=== PATIENT | female | born 1935 | race Caucasian/White ===

== ENCOUNTER 2020-08-09 08:53 | Inpatient (IN) | payer OTHER ==
[~2020-08-09] VITALS: Ht 167.6 cm; Wt 87.0 kg
[2020-08-09] MEDS ORDERED: ALBUTEROL SULFATE HFA 90 MCG/PUFF 8 GM INHALER IH ONE (09:30)
[2020-08-09 10:20] LABS: ABG A-A DIFF O2 599.9 mmHg (10-20.0); ABG BASE EXCESS -0.3 mmol/L (-2.0-3.0); ABG CARBOXYHEMOGLOBIN 0.6 % (0.0-1.5); ABG HCO3 24.7 mmol/L (22.0-26.0); ABG METHEMOGLOBIN 0.3 % (0.0-1.5); ABG OXYGEN CONTENT 18.4 mL/dL (15.0-23.0); ABG OXYGEN SATURATION 96.4 % (95.0-98.0); ABG OXYHEMOGLOBIN 95.5 % (94.0-100.0); ABG PCO2 34 mmHg (35-45); ABG PH 7.456 (7.35-7.450); ABG TOTAL HEMOGLOBIN 13.7 G/dL (12.0-18.0); O2 DEVICE,BLOOD GAS NON REBREATHER (ROOM AIR); PO2, ARTERIAL BG 78.8 mmHg (71.0-79.0); SITE, BLOOD GAS RT RADIAL; SOURCE, BLOOD GAS ARTERIAL; TEMPERATURE, FAHRENHEIT, BG 98.6 FAHREN (96.0-98.6)
[2020-08-09] MEDS ORDERED: CefTRIAXone 1 GM/DEXTROSE 50 ML IV ONE (10:30)
[2020-08-09] MEDS ORDERED: AZITHROMYCIN 500 MG/NS 250 ML IV ONE (10:30)
[2020-08-09] MEDS ORDERED: DEXAMETHASONE SOD PHOS 4 MG/ML VIAL IVP ONE (10:30)
[2020-08-09 10:54] LABS: BASOPHILS % (AUTO) 0.1 % (0.0-2.0); EOSINOPHILS % (AUTO) 0 % (1.0-6.0); HEMATOCRIT 38.5 % (36-46); HEMOGLOBIN 12.9 g/dL (12.0-16.0); LYMPHOCYTES # (AUTO) 0.4 K/uL (1.0-4.8); LYMPHOCYTES % (AUTO) 1.9 % (22.0-44.0); MEAN CORPUSCULAR HEMOGLOBIN 27.2 pg (26.0-34.0); MEAN CORPUSCULAR HGB CONC 33.5 G/dL (31.0-37.0); MEAN CORPUSCULAR VOLUME 81 fL (80-100); MONOCYTES # (AUTO) 0.9 K/uL (0.1-1.0); MONOCYTES % (AUTO) 4.5 % (2.0-9.0); NEUTROPHILS # (AUTO) 19.5 K/uL (1.8-7.7); PLATELET COUNT (AUTO) 333 K/uL (150-450); RED BLOOD CELL COUNT(AUTO) 4.75 MIL/uL (4.00-5.20); RED CELL DISTRIBUTION WIDTH 14.7 % (11.5-14.5)
[2020-08-09 10:55] LABS: NEUTROPHILS % (AUTO) 93.5 % (40.0-70.0)
[2020-08-09 11:04] LABS: ALANINE AMINOTRANSFERASE 57 U/L (12-78); ALBUMIN 2.7 g/dL (3.4-5.0); ALKALINE PHOSPHATASE 126 U/L (46-116); ANION GAP 15 mmol/L (8-16); ASPARTATE AMINOTRANSFERASE 30 U/L (15-37); BILIRUBIN,TOTAL 0.4 mg/dL (0.1-1.0); C-REACTIVE PROTEIN QUANT 8.42 mg/dL (0.00-0.30); CALCIUM, TOTAL 9.3 mg/dL (8.8-10.5); CARBON DIOXIDE 24 mmol/L (22-29); CHLORIDE 102 mmol/L (98-107); CREATINE KINASE, TOTAL ONLY 31 U/L (26-192); CREATININE 1.08 mg/dL (0.60-1.30); FERRITIN 510 ng/mL (8-252); GLOMERULAR FILTR. RATE CALC 49 mL/min (>60); GLUCOSE,RANDOM 168 mg/dL (70-110); LACTATE DEHYDROGENASE 365 U/L (81-234); POTASSIUM 3.1 mmol/L (3.5-5.1); SODIUM SERUM 141 mmol/L (136-145); TOTAL PROTEIN, SERUM 7.7 g/dL (6.4-8.2); UREA NITROGEN, BLOOD 32 mg/dL (7-18)
[2020-08-09 11:05] LABS: D-DIMER 0.84 mg/L FEU (0.00-0.50); PROTHROMBIN TIME 10.3 SEC (9.4-11.6)
[2020-08-09 11:09] LABS: LACTIC ACID 3.7 mmol/L (0.4-2.0)
[2020-08-09 11:24] LABS: B-TYPE NATRIURETIC PEPTIDE 74 pg/mL (0-100)
[2020-08-09] MEDS ORDERED: SODIUM CHLORIDE 0.9% 2,000 ML IV ONE (11:30)
[2020-08-09 11:35] LABS: INFLUENZA TYPE A NEGATIVE FOR TYPE A (NEGATIVE); INFLUENZA TYPE B NEGATIVE FOR TYPE B (NEGATIVE)
[2020-08-09] MEDS ORDERED: POTASSIUM CHLORIDE 20 MEQ ER TABLET PO ONE (11:45)
[2020-08-09] MEDS ORDERED: HEPARIN SODIUM,PORCINE 5,000 UNITS/ML VIAL IVP PRN ×2 (12:45)
[2020-08-09] MEDS ORDERED: HEPARIN SODIUM 25000 UNITS/D5W 250 ML IV PRN (12:45)
[2020-08-09] MEDS ORDERED: ZOLPIDEM TARTRATE 5 MG TABLET PO PRN (12:45)
[2020-08-09] MEDS ORDERED: 0.9% SODIUM CHLORIDE 10 ML SYRINGE IVP PRN (12:45)
[2020-08-09] MEDS ORDERED: HYDROCODONE/ACETAMINOPHEN 5-325 MG TABLET PO PRN (12:45)
[2020-08-09] MEDS ORDERED: BISACODYL 10 MG RECTAL RECTAL SUPPOSITORY PR PRN (12:45)
[2020-08-09] MEDS ORDERED: *CLINICAL-LEVOFLOXACIN IVPB DOSING CLINICAL ONE (12:45)
[2020-08-09] MEDS ORDERED: ACETAMINOPHEN 325 MG TABLET PO PRN (12:45)
[2020-08-09] MEDS ORDERED: REMDESIVIR 200 MG in SODIUM CHLORIDE 0.9% 250 ML IV ONE (13:00)
[2020-08-09 14:08] LABS: EOSINOPHILS % (AUTO) 0 % (1.0-6.0); HEMATOCRIT 38.5 % (36-46); HEMOGLOBIN 12.3 g/dL (12.0-16.0); LYMPHOCYTES # (AUTO) 0.5 K/uL (1.0-4.8); LYMPHOCYTES % (AUTO) 2.6 % (22.0-44.0); MEAN CORPUSCULAR HEMOGLOBIN 26.6 pg (26.0-34.0); MEAN CORPUSCULAR VOLUME 83 fL (80-100); MONOCYTES # (AUTO) 0.8 K/uL (0.1-1.0); MONOCYTES % (AUTO) 3.9 % (2.0-9.0); NEUTROPHILS # (AUTO) 19.3 K/uL (1.8-7.7); PLATELET COUNT (AUTO) 309 K/uL (150-450); RED BLOOD CELL COUNT(AUTO) 4.65 MIL/uL (4.00-5.20)
[2020-08-09 14:16] LABS: PROTHROMBIN TIME 10.4 SEC (9.4-11.6)
[2020-08-09 14:18] LABS: NEUTROPHILS % (AUTO) 93.5 % (40.0-70.0)
[2020-08-09] MEDS ORDERED: SODIUM CHLORIDE 0.9% 500 ML IV ONE (15:16)
[2020-08-09 15:53] VITALS: BP 163/83
[2020-08-09] MEDS ORDERED: HEPARIN SODIUM,PORCINE 5,000 UNITS/ML VIAL SQ SCH (16:00)
[2020-08-09] MEDS: GuaiFENesin/CODEINE [SUGAR FREE] 200-20MG/10 ML SYRUP UDCUP PO PRN (17:27)
[2020-08-09] MEDS ORDERED: LOSA-382 PO (20:15)
[2020-08-09] MEDS ORDERED: AMLO-257 PO (20:15)
[2020-08-09 20:19] VITALS: BP 144/64
[2020-08-09] MEDS: CHOLECALCIFEROL (VIT D3) 400 UNITS [10 MCG] TABLET PO SCH (21:46)
[2020-08-09] MEDS: ASCORBIC ACID 500 MG TABLET PO SCH (21:46)
[2020-08-09] MEDS: ZINC SULFATE 220 MG CAPSULE PO SCH (21:47)
[2020-08-09] MEDS: DOCUSATE SODIUM 100 MG CAPSULE PO SCH (21:47)
[2020-08-09] MEDS: BENZONATATE 100 MG CAPSULE PO SCH (21:47)
[2020-08-09] MEDS: ONDANSETRON HCL 4 MG/2 ML VIAL IVP PRN (22:52)
[2020-08-10] VITALS (7 sets, daily range): BP systolic 124–150; BP diastolic 55–93
[2020-08-10] MEDS: FAMOTIDINE 10 MG/ML 2 ML VIAL IVP SCH ×2 (01:45→08:16)
[2020-08-10] MEDS ORDERED: SENNA 187 MG TABLET PO PRN (01:45)
[2020-08-10] MEDS ORDERED: METOCLOPRAMIDE HCL 5 MG/ML 2 ML VIAL IVP ONE (01:45)
[2020-08-10] MEDS: GuaiFENesin/CODEINE [SUGAR FREE] 200-20MG/10 ML SYRUP UDCUP PO PRN (06:42)
[2020-08-10 07:18] LABS: BASOPHILS % (AUTO) 0.1 % (0.0-2.0); EOSINOPHILS % (AUTO) 0 % (1.0-6.0); HEMATOCRIT 37.3 % (36-46); HEMOGLOBIN 12.3 g/dL (12.0-16.0); LYMPHOCYTES # (AUTO) 0.9 K/uL (1.0-4.8); LYMPHOCYTES % (AUTO) 4.5 % (22.0-44.0); MEAN CORPUSCULAR HEMOGLOBIN 26.7 pg (26.0-34.0); MEAN CORPUSCULAR HGB CONC 32.9 G/dL (31.0-37.0); MEAN CORPUSCULAR VOLUME 81 fL (80-100); MONOCYTES # (AUTO) 1.4 K/uL (0.1-1.0); NEUTROPHILS # (AUTO) 17.4 K/uL (1.8-7.7); PLATELET COUNT (AUTO) 323 K/uL (150-450); RED BLOOD CELL COUNT(AUTO) 4.59 MIL/uL (4.00-5.20); RED CELL DISTRIBUTION WIDTH 14.9 % (11.5-14.5)
[2020-08-10 07:36] LABS: NEUTROPHILS % (AUTO) 88.4 % (40.0-70.0)
[2020-08-10 07:40] LABS: ALANINE AMINOTRANSFERASE 56 U/L (12-78); ALBUMIN 2.2 g/dL (3.4-5.0); ALKALINE PHOSPHATASE 120 U/L (46-116); ANION GAP 11 mmol/L (8-16); ASPARTATE AMINOTRANSFERASE 40 U/L (15-37); BILIRUBIN,TOTAL 0.4 mg/dL (0.1-1.0); CARBON DIOXIDE 25 mmol/L (22-29); CHLORIDE 108 mmol/L (98-107); CREATININE 0.74 mg/dL (0.60-1.30); GLOMERULAR FILTR. RATE CALC > 60 mL/min (>60); GLUCOSE,RANDOM 124 mg/dL (70-110); POTASSIUM 3.5 mmol/L (3.5-5.1); SODIUM SERUM 144 mmol/L (136-145); TOTAL PROTEIN, SERUM 6.9 g/dL (6.4-8.2); UREA NITROGEN, BLOOD 26 mg/dL (7-18)
[2020-08-10] MEDS: ASCORBIC ACID 500 MG TABLET PO SCH ×2 (08:15→20:01)
[2020-08-10] MEDS: CHOLECALCIFEROL (VIT D3) 400 UNITS [10 MCG] TABLET PO SCH ×2 (08:15→20:00)
[2020-08-10] MEDS: ZINC SULFATE 220 MG CAPSULE PO SCH ×2 (08:16→20:01)
[2020-08-10] MEDS: BENZONATATE 100 MG CAPSULE PO SCH ×3 (08:16→20:01)
[2020-08-10] MEDS: DOCUSATE SODIUM 100 MG CAPSULE PO SCH ×2 (08:16→20:01)
[2020-08-10] MEDS: DEXAMETHASONE SOD PHOS 4 MG/ML VIAL IVP SCH (08:17)
[2020-08-10] MEDS ORDERED: LEVOFLOXACIN 750 MG/D5% WATER 150 ML IV SCH (09:00)
[2020-08-10] MEDS ORDERED: PANTOPRAZOLE SODIUM 40 MG DR TABLET PO SCH (09:00)
[2020-08-10] MEDS: LACTOBAC ACID/BULG/BIFID/THERM TABLET PO SCH ×2 (10:00→20:00)
[2020-08-10] MEDS ORDERED: SODIUM CHLORIDE 0.9% 0 ML ONE (11:20)
[2020-08-10] MEDS ORDERED: IOVERSOL 350 MG/ML 100 ML VIAL ONE (11:20)
[2020-08-10] MEDS ORDERED: BARIUM SULFATE 0.1% SUSPENSION 450 ML BOTTLE ONE (11:26)
[2020-08-10] MEDS: MORPHINE SULFATE 2 MG/ML SYRINGE IVP PRN ×2 (12:10→21:27)
[2020-08-10] MEDS: REMDESIVIR 100 MG in SODIUM CHLORIDE 0.9% 250 ML IV SCH (17:55)
[2020-08-10] MEDS: FAMOTIDINE 20 MG TABLET PO SCH (20:00)
[2020-08-10] MEDS: APIXABAN 5 MG TABLET PO SCH (20:00)
[2020-08-10] MEDS: AmLODIPine BESYLATE 5 MG TABLET PO SCH (20:01)
[2020-08-10] MEDS: ONDANSETRON HCL 4 MG/2 ML VIAL IVP PRN (21:27)
[2020-08-10] MEDS ORDERED: SODIUM CHLORIDE 0.9% 500 ML IV ONE (21:31)
[2020-08-11] VITALS (12 sets, daily range): BP systolic 112–137; BP diastolic 48–72
[2020-08-11] MEDS: GuaiFENesin/CODEINE [SUGAR FREE] 200-20MG/10 ML SYRUP UDCUP PO PRN (03:25)
[2020-08-11 06:43] LABS: EOSINOPHILS % (AUTO) 0 % (1.0-6.0); HEMATOCRIT 36.8 % (36-46); HEMOGLOBIN 11.9 g/dL (12.0-16.0); LYMPHOCYTES # (AUTO) 0.9 K/uL (1.0-4.8); LYMPHOCYTES % (AUTO) 5.1 % (22.0-44.0); MEAN CORPUSCULAR HEMOGLOBIN 26.4 pg (26.0-34.0); MEAN CORPUSCULAR HGB CONC 32.3 G/dL (31.0-37.0); MEAN CORPUSCULAR VOLUME 82 fL (80-100); MONOCYTES # (AUTO) 1.9 K/uL (0.1-1.0); MONOCYTES % (AUTO) 9.9 % (2.0-9.0); NEUTROPHILS # (AUTO) 15.8 K/uL (1.8-7.7); PLATELET COUNT (AUTO) 301 K/uL (150-450); RED BLOOD CELL COUNT(AUTO) 4.49 MIL/uL (4.00-5.20); RED CELL DISTRIBUTION WIDTH 14.5 % (11.5-14.5)
[2020-08-11 07:22] LABS: ALANINE AMINOTRANSFERASE 46 U/L (12-78); ALBUMIN 2.1 g/dL (3.4-5.0); ALKALINE PHOSPHATASE 108 U/L (46-116); ANION GAP 8 mmol/L (8-16); ASPARTATE AMINOTRANSFERASE 31 U/L (15-37); BILIRUBIN,TOTAL 0.4 mg/dL (0.1-1.0); C-REACTIVE PROTEIN QUANT 6.51 mg/dL (0.00-0.30); CALCIUM, TOTAL 8.2 mg/dL (8.8-10.5); CARBON DIOXIDE 27 mmol/L (22-29); CHLORIDE 105 mmol/L (98-107); CREATININE 0.68 mg/dL (0.60-1.30); GLUCOSE,RANDOM 104 mg/dL (70-110); POTASSIUM 3.4 mmol/L (3.5-5.1); SODIUM SERUM 140 mmol/L (136-145); TOTAL PROTEIN, SERUM 6.4 g/dL (6.4-8.2); UREA NITROGEN, BLOOD 26 mg/dL (7-18)
[2020-08-11 07:24] LABS: GLOMERULAR FILTR. RATE CALC > 60 mL/min (>60)
[2020-08-11] MEDS: DEXAMETHASONE SOD PHOS 4 MG/ML VIAL IVP SCH (08:22)
[2020-08-11] MEDS: APIXABAN 5 MG TABLET PO SCH ×2 (08:23→20:47)
[2020-08-11] MEDS: ZINC SULFATE 220 MG CAPSULE PO SCH ×2 (08:23→20:47)
[2020-08-11] MEDS: BENZONATATE 100 MG CAPSULE PO SCH ×3 (08:23→20:47)
[2020-08-11] MEDS: LACTOBAC ACID/BULG/BIFID/THERM TABLET PO SCH ×2 (08:23→20:47)
[2020-08-11] MEDS: DOCUSATE SODIUM 100 MG CAPSULE PO SCH ×2 (08:23→20:48)
[2020-08-11] MEDS: LEVOFLOXACIN 750 MG/D5% WATER 150 ML IV SCH (08:23)
[2020-08-11] MEDS: CHOLECALCIFEROL (VIT D3) 400 UNITS [10 MCG] TABLET PO SCH ×2 (08:23→20:48)
[2020-08-11] MEDS: ASCORBIC ACID 500 MG TABLET PO SCH ×2 (08:23→20:47)
[2020-08-11] MEDS: FAMOTIDINE 20 MG TABLET PO SCH ×2 (08:24→20:47)
[2020-08-11] MEDS: ONDANSETRON HCL 4 MG/2 ML VIAL IVP PRN ×2 (08:40→22:35)
[2020-08-11] MEDS: MORPHINE SULFATE 2 MG/ML SYRINGE IVP PRN ×2 (08:40→22:09)
[2020-08-11] MEDS: POTASSIUM CHLORIDE 20 MEQ ER TABLET PO PRN (12:55)
[2020-08-11] MEDS: LORazepam 0.5 MG TABLET PO PRN (12:55)
[2020-08-11] MEDS: REMDESIVIR 100 MG in SODIUM CHLORIDE 0.9% 250 ML IV SCH (16:20)
[2020-08-11] MEDS: AmLODIPine BESYLATE 5 MG TABLET PO SCH (20:47)
[2020-08-12 00:34] VITALS: BP 133/67
[2020-08-12 04:05] VITALS: BP 156/66
[2020-08-12] MEDS: MORPHINE SULFATE 2 MG/ML SYRINGE IVP PRN ×3 (06:07→22:05)
[2020-08-12 07:57] VITALS: BP 139/65
[2020-08-12] MEDS: DEXAMETHASONE SOD PHOS 4 MG/ML VIAL IVP SCH (08:11)
[2020-08-12] MEDS: LEVOFLOXACIN 750 MG/D5% WATER 150 ML IV SCH (08:11)
[2020-08-12] MEDS: CHOLECALCIFEROL (VIT D3) 400 UNITS [10 MCG] TABLET PO SCH ×2 (08:12→20:48)
[2020-08-12] MEDS: BENZONATATE 100 MG CAPSULE PO SCH ×3 (08:12→20:48)
[2020-08-12] MEDS: ASCORBIC ACID 500 MG TABLET PO SCH ×2 (08:12→20:49)
[2020-08-12] MEDS: ZINC SULFATE 220 MG CAPSULE PO SCH ×2 (08:12→20:48)
[2020-08-12] MEDS: FAMOTIDINE 20 MG TABLET PO SCH ×2 (08:12→20:48)
[2020-08-12] MEDS: DOCUSATE SODIUM 100 MG CAPSULE PO SCH ×2 (08:12→20:49)
[2020-08-12] MEDS: APIXABAN 5 MG TABLET PO SCH ×2 (08:12→20:49)
[2020-08-12] MEDS: LACTOBAC ACID/BULG/BIFID/THERM TABLET PO SCH ×2 (08:16→20:48)
[2020-08-12 08:57] LABS: ALANINE AMINOTRANSFERASE 41 U/L (12-78); ALBUMIN 2.2 g/dL (3.4-5.0); ALKALINE PHOSPHATASE 111 U/L (46-116); ANION GAP 9 mmol/L (8-16); ASPARTATE AMINOTRANSFERASE 30 U/L (15-37); BILIRUBIN,TOTAL 0.4 mg/dL (0.1-1.0); C-REACTIVE PROTEIN QUANT 5.16 mg/dL (0.00-0.30); CALCIUM, TOTAL 8.2 mg/dL (8.8-10.5); CARBON DIOXIDE 26 mmol/L (22-29); CHLORIDE 106 mmol/L (98-107); CREATININE 0.66 mg/dL (0.60-1.30); FERRITIN 800 ng/mL (8-252); GLUCOSE,RANDOM 83 mg/dL (70-110); POTASSIUM 3.8 mmol/L (3.5-5.1); SODIUM SERUM 141 mmol/L (136-145); TOTAL PROTEIN, SERUM 6.6 g/dL (6.4-8.2); UREA NITROGEN, BLOOD 26 mg/dL (7-18)
[2020-08-12 08:59] LABS: GLOMERULAR FILTR. RATE CALC > 60 mL/min (>60)
[2020-08-12] MEDS: ONDANSETRON HCL 4 MG/2 ML VIAL IVP PRN (10:59)
[2020-08-12 11:12] VITALS: BP 123/63
[2020-08-12] MEDS: MAGNESIUM HYDROXIDE SUSPENSION 30 ML UDCUP PO PRN (13:17)
[2020-08-12] MEDS: LORazepam 0.5 MG TABLET PO PRN (14:25)
[2020-08-12 15:38] VITALS: BP 129/65
[2020-08-12] MEDS: REMDESIVIR 100 MG in SODIUM CHLORIDE 0.9% 250 ML IV SCH (16:59)
[2020-08-12 20:08] VITALS: BP 111/67
[2020-08-12] MEDS: AmLODIPine BESYLATE 5 MG TABLET PO SCH (20:49)
[2020-08-13] VITALS (9 sets, daily range): BP systolic 106–139; BP diastolic 46–64
[2020-08-13] MEDS: ONDANSETRON HCL 4 MG/2 ML VIAL IVP PRN ×2 (00:15→21:48)
[2020-08-13] MEDS: MORPHINE SULFATE 2 MG/ML SYRINGE IVP PRN ×3 (02:00→20:08)
[2020-08-13] MEDS: ACETAMINOPHEN 325 MG TABLET PO PRN (05:27)
[2020-08-13] MEDS: DEXAMETHASONE SOD PHOS 4 MG/ML VIAL IVP SCH (08:00)
[2020-08-13] MEDS: ASCORBIC ACID 500 MG TABLET PO SCH ×2 (08:00→19:57)
[2020-08-13] MEDS: ZINC SULFATE 220 MG CAPSULE PO SCH ×2 (08:00→19:57)
[2020-08-13] MEDS: LACTOBAC ACID/BULG/BIFID/THERM TABLET PO SCH ×2 (08:00→19:57)
[2020-08-13] MEDS: DOCUSATE SODIUM 100 MG CAPSULE PO SCH ×2 (08:01→19:57)
[2020-08-13] MEDS: APIXABAN 5 MG TABLET PO SCH ×2 (08:01→19:57)
[2020-08-13] MEDS: FAMOTIDINE 20 MG TABLET PO SCH (08:01)
[2020-08-13] MEDS: LORazepam 0.5 MG TABLET PO PRN (08:01)
[2020-08-13] MEDS: CHOLECALCIFEROL (VIT D3) 400 UNITS [10 MCG] TABLET PO SCH ×2 (08:01→19:57)
[2020-08-13] MEDS: BENZONATATE 100 MG CAPSULE PO SCH ×3 (08:01→19:57)
[2020-08-13] MEDS: LEVOFLOXACIN 750 MG/D5% WATER 150 ML IV SCH (08:02)
[2020-08-13 08:15] LABS: BASOPHILS % (AUTO) 0.1 % (0.0-2.0); EOSINOPHILS % (AUTO) 0.1 % (1.0-6.0); HEMATOCRIT 35.8 % (36-46); HEMOGLOBIN 11.6 g/dL (12.0-16.0); LYMPHOCYTES # (AUTO) 1.1 K/uL (1.0-4.8); LYMPHOCYTES % (AUTO) 5.6 % (22.0-44.0); MEAN CORPUSCULAR HEMOGLOBIN 26.6 pg (26.0-34.0); MEAN CORPUSCULAR HGB CONC 32.4 G/dL (31.0-37.0); MEAN CORPUSCULAR VOLUME 82 fL (80-100); MONOCYTES # (AUTO) 1.5 K/uL (0.1-1.0); MONOCYTES % (AUTO) 7.8 % (2.0-9.0); NEUTROPHILS # (AUTO) 16.1 K/uL (1.8-7.7); PLATELET COUNT (AUTO) 300 K/uL (150-450); RED BLOOD CELL COUNT(AUTO) 4.37 MIL/uL (4.00-5.20); RED CELL DISTRIBUTION WIDTH 14.5 % (11.5-14.5)
[2020-08-13 08:19] LABS: NEUTROPHILS % (AUTO) 86.4 % (40.0-70.0)
[2020-08-13 08:45] LABS: ALANINE AMINOTRANSFERASE 34 U/L (12-78); ALBUMIN 1.9 g/dL (3.4-5.0); ALKALINE PHOSPHATASE 97 U/L (46-116); ANION GAP 9 mmol/L (8-16); ASPARTATE AMINOTRANSFERASE 22 U/L (15-37); BILIRUBIN,TOTAL 0.5 mg/dL (0.1-1.0); C-REACTIVE PROTEIN QUANT 8.52 mg/dL (0.00-0.30); CALCIUM, TOTAL 7.7 mg/dL (8.8-10.5); CARBON DIOXIDE 27 mmol/L (22-29); CHLORIDE 105 mmol/L (98-107); CREATININE 0.68 mg/dL (0.60-1.30); GLOMERULAR FILTR. RATE CALC > 60 mL/min (>60); GLUCOSE,RANDOM 80 mg/dL (70-110); POTASSIUM 3.5 mmol/L (3.5-5.1); SODIUM SERUM 141 mmol/L (136-145); TOTAL PROTEIN, SERUM 5.8 g/dL (6.4-8.2); UREA NITROGEN, BLOOD 27 mg/dL (7-18)
[2020-08-13] MEDS: PANTOPRAZOLE SODIUM 40 MG DR TABLET PO SCH ×2 (10:27→19:57)
[2020-08-13] MEDS: REMDESIVIR 100 MG in SODIUM CHLORIDE 0.9% 250 ML IV SCH (16:24)
[2020-08-13] MEDS ORDERED: SODIUM CHLORIDE 0.9% 100 ML ONE (19:48)
[2020-08-13] MEDS: AmLODIPine BESYLATE 5 MG TABLET PO SCH (19:57)
[2020-08-14 00:23] VITALS: BP 122/43
[2020-08-14] MEDS: LORazepam 0.5 MG TABLET PO PRN ×2 (01:14→23:15)
[2020-08-14] MEDS: SENNA 187 MG TABLET PO PRN (01:15)
[2020-08-14 03:28] LABS: ABG A-A DIFF O2 582.8 mmHg (10-20.0); ABG CARBOXYHEMOGLOBIN 1.1 % (0.0-1.5); ABG HCO3 26.6 mmol/L (22.0-26.0); ABG METHEMOGLOBIN 0.3 % (0.0-1.5); ABG OXYGEN CONTENT 16.4 mL/dL (15.0-23.0); ABG OXYGEN SATURATION 87.7 % (95.0-98.0); ABG OXYHEMOGLOBIN 86.5 % (94.0-100.0); ABG PCO2 43 mmHg (35-45); ABG PH 7.423 (7.35-7.450); ABG TOTAL HEMOGLOBIN 13.5 G/dL (12.0-18.0); O2 DEVICE,BLOOD GAS CANNULA (ROOM AIR); SITE, BLOOD GAS RT RADIAL; SOURCE, BLOOD GAS ARTERIAL; TEMPERATURE, FAHRENHEIT, BG 98.6 FAHREN (96.0-98.6)
[2020-08-14] MEDS: MORPHINE SULFATE 2 MG/ML SYRINGE IVP PRN ×4 (03:32→20:15)
[2020-08-14 06:27] VITALS: BP 117/50
[2020-08-14 08:18] VITALS: BP 125/57
[2020-08-14 08:29] LABS: ALANINE AMINOTRANSFERASE 28 U/L (12-78); ALKALINE PHOSPHATASE 90 U/L (46-116); ANION GAP 9 mmol/L (8-16); ASPARTATE AMINOTRANSFERASE 17 U/L (15-37); BILIRUBIN,TOTAL 0.6 mg/dL (0.1-1.0); C-REACTIVE PROTEIN QUANT 9.39 mg/dL (0.00-0.30); CALCIUM, TOTAL 7.8 mg/dL (8.8-10.5); CARBON DIOXIDE 27 mmol/L (22-29); CHLORIDE 105 mmol/L (98-107); CREATININE 0.72 mg/dL (0.60-1.30); GLUCOSE,RANDOM 84 mg/dL (70-110); POTASSIUM 3.6 mmol/L (3.5-5.1); SODIUM SERUM 141 mmol/L (136-145); TOTAL PROTEIN, SERUM 5.9 g/dL (6.4-8.2); UREA NITROGEN, BLOOD 22 mg/dL (7-18)
[2020-08-14 08:32] LABS: GLOMERULAR FILTR. RATE CALC > 60 mL/min (>60)
[2020-08-14] MEDS: CHOLECALCIFEROL (VIT D3) 400 UNITS [10 MCG] TABLET PO SCH ×2 (08:44→20:41)
[2020-08-14] MEDS: ASCORBIC ACID 500 MG TABLET PO SCH ×2 (08:44→20:40)
[2020-08-14] MEDS: ZINC SULFATE 220 MG CAPSULE PO SCH ×2 (08:44→20:51)
[2020-08-14] MEDS: BENZONATATE 100 MG CAPSULE PO SCH ×3 (08:44→20:40)
[2020-08-14] MEDS: LACTOBAC ACID/BULG/BIFID/THERM TABLET PO SCH ×2 (08:44→20:40)
[2020-08-14] MEDS: PANTOPRAZOLE SODIUM 40 MG DR TABLET PO SCH ×2 (08:44→20:40)
[2020-08-14] MEDS: DOCUSATE SODIUM 100 MG CAPSULE PO SCH ×2 (08:44→20:40)
[2020-08-14] MEDS: APIXABAN 5 MG TABLET PO SCH ×2 (08:44→20:40)
[2020-08-14] MEDS: DEXAMETHASONE SOD PHOS 4 MG/ML VIAL IVP SCH (08:45)
[2020-08-14] MEDS: LEVOFLOXACIN 750 MG/D5% WATER 150 ML IV SCH (08:45)
[2020-08-14] MEDS ORDERED: SODIUM CHLORIDE 0.9% 1,000 ML IV ONE (10:45)
[2020-08-14] MEDS ORDERED: SODIUM CHLORIDE 0.9% 100 ML ONE (10:57)
[2020-08-14] MEDS ORDERED: BARIUM SULFATE 0.1% SUSPENSION 450 ML BOTTLE ONE (10:57)
[2020-08-14] MEDS ORDERED: IOVERSOL 320 MG/ML 100 ML VIAL ONE (10:57)
[2020-08-14 12:24] VITALS: BP 132/57
[2020-08-14 13:02] LABS: LACTIC ACID 2.3 mmol/L (0.4-2.0)
[2020-08-14 15:37] VITALS: BP 135/68
[2020-08-14] MEDS: MetroNIDAZOLE 500 MG/NACL 100 ML IV SCH ×2 (15:38→20:54)
[2020-08-14 20:35] VITALS: BP 111/48
[2020-08-14] MEDS: AmLODIPine BESYLATE 5 MG TABLET PO SCH (20:40)
[2020-08-15] VITALS (9 sets, daily range): BP systolic 112–143; BP diastolic 50–79
[2020-08-15] MEDS: MORPHINE SULFATE 2 MG/ML SYRINGE IVP PRN ×5 (00:36→18:44)
[2020-08-15] MEDS: MetroNIDAZOLE 500 MG/NACL 100 ML IV SCH ×3 (05:00→21:24)
[2020-08-15 06:22] LABS: EOSINOPHILS % (AUTO) 0.2 % (1.0-6.0); HEMATOCRIT 36.2 % (36-46); HEMOGLOBIN 11.9 g/dL (12.0-16.0); LYMPHOCYTES # (AUTO) 1.3 K/uL (1.0-4.8); LYMPHOCYTES % (AUTO) 5.8 % (22.0-44.0); MEAN CORPUSCULAR HEMOGLOBIN 26.9 pg (26.0-34.0); MEAN CORPUSCULAR VOLUME 82 fL (80-100); MONOCYTES # (AUTO) 0.8 K/uL (0.1-1.0); MONOCYTES % (AUTO) 3.9 % (2.0-9.0); NEUTROPHILS # (AUTO) 19.4 K/uL (1.8-7.7); PLATELET COUNT (AUTO) 365 K/uL (150-450); RED BLOOD CELL COUNT(AUTO) 4.43 MIL/uL (4.00-5.20); RED CELL DISTRIBUTION WIDTH 14.9 % (11.5-14.5)
[2020-08-15 06:57] LABS: NEUTROPHILS % (AUTO) 90.1 % (40.0-70.0)
[2020-08-15 07:52] LABS: ANION GAP 9 mmol/L (8-16); CARBON DIOXIDE 26 mmol/L (22-29); CHLORIDE 106 mmol/L (98-107); CREATININE 0.71 mg/dL (0.60-1.30); GLUCOSE,RANDOM 100 mg/dL (70-110); POTASSIUM 3.5 mmol/L (3.5-5.1); SODIUM SERUM 141 mmol/L (136-145); UREA NITROGEN, BLOOD 20 mg/dL (7-18)
[2020-08-15 07:53] LABS: ALANINE AMINOTRANSFERASE 24 U/L (12-78); ALKALINE PHOSPHATASE 95 U/L (46-116); ASPARTATE AMINOTRANSFERASE 20 U/L (15-37); BILIRUBIN,TOTAL 0.7 mg/dL (0.1-1.0); C-REACTIVE PROTEIN QUANT 12.19 mg/dL (0.00-0.30); CALCIUM, TOTAL 7.7 mg/dL (8.8-10.5); CREATINE KINASE, TOTAL ONLY 36 U/L (26-192); FERRITIN 584 ng/mL (8-252); LACTATE DEHYDROGENASE 461 U/L (81-234); TOTAL PROTEIN, SERUM 6.1 g/dL (6.4-8.2)
[2020-08-15 07:55] LABS: GLOMERULAR FILTR. RATE CALC > 60 mL/min (>60)
[2020-08-15] MEDS: LACTOBAC ACID/BULG/BIFID/THERM TABLET PO SCH ×2 (09:00→21:00)
[2020-08-15] MEDS: DEXAMETHASONE SOD PHOS 4 MG/ML VIAL IVP SCH (09:19)
[2020-08-15] MEDS: LEVOFLOXACIN 750 MG/D5% WATER 150 ML IV SCH (09:43)
[2020-08-15] MEDS: APIXABAN 5 MG TABLET PO SCH ×2 (11:49→21:00)
[2020-08-15] MEDS: POLYETHYLENE GLYCOL 3350 17 GM PACKET PO SCH (11:53)
[2020-08-15] MEDS: CHOLECALCIFEROL (VIT D3) 400 UNITS [10 MCG] TABLET PO SCH ×2 (11:54→21:00)
[2020-08-15] MEDS: ZINC SULFATE 220 MG CAPSULE PO SCH ×2 (11:54→21:00)
[2020-08-15] MEDS: PANTOPRAZOLE SODIUM 40 MG DR TABLET PO SCH ×2 (11:54→21:00)
[2020-08-15] MEDS: BENZONATATE 100 MG CAPSULE PO SCH ×3 (11:54→21:00)
[2020-08-15] MEDS: ASCORBIC ACID 500 MG TABLET PO SCH ×2 (11:54→21:00)
[2020-08-15] MEDS ORDERED: MORPHINE SULFATE 2 MG/ML SYRINGE IVP ONE (12:00)
[2020-08-15] MEDS: DEXTROSE 5%-0.45% SODIUM CHL 1,000 ML IV SCH (12:25)
[2020-08-15] MEDS ORDERED: PROPOFOL 1000 MG/ISO-OSM 100 ML IV ONE (18:35)
[2020-08-15] MEDS: AmLODIPine BESYLATE 5 MG TABLET PO SCH (21:00)
[2020-08-15 21:08] LABS: ABG A-A DIFF O2 594.6 mmHg (10-20.0); ABG BASE EXCESS 2.4 mmol/L (-2.0-3.0); ABG CARBOXYHEMOGLOBIN 0.5 % (0.0-1.5); ABG HCO3 26.5 mmol/L (22.0-26.0); ABG OXYGEN CONTENT 17.1 mL/dL (15.0-23.0); ABG OXYHEMOGLOBIN 95.5 % (94.0-100.0); ABG PCO2 40 mmHg (35-45); ABG PH 7.442 (7.35-7.450); ABG TOTAL HEMOGLOBIN 12.7 G/dL (12.0-18.0); PO2, ARTERIAL BG 78.7 mmHg (71.0-79.0); SOURCE, BLOOD GAS ARTERIAL; TEMPERATURE, FAHRENHEIT, BG 98.6 FAHREN (96.0-98.6)
[2020-08-15 21:09] LABS: O2 DEVICE,BLOOD GAS BIPAP (ROOM AIR); SITE, BLOOD GAS LFT RADIAL; VENT MODE, BG BIPAP (ROOM AIR)
[2020-08-15] MEDS ORDERED: ENOXAPARIN SODIUM 80 MG/0.8 ML PF SYRINGE SQ ONE (22:00)
[2020-08-16] VITALS: BP 132/79
[2020-08-16] MEDS: MetroNIDAZOLE 500 MG/NACL 100 ML IV SCH ×3 (04:43→21:11)
[2020-08-16 06:18] LABS: BASOPHILS % (AUTO) 0.2 % (0.0-2.0); EOSINOPHILS % (AUTO) 0.1 % (1.0-6.0); HEMATOCRIT 35.6 % (36-46); HEMOGLOBIN 11.7 g/dL (12.0-16.0); LYMPHOCYTES # (AUTO) 0.6 K/uL (1.0-4.8); LYMPHOCYTES % (AUTO) 2.7 % (22.0-44.0); MEAN CORPUSCULAR HEMOGLOBIN 26.6 pg (26.0-34.0); MEAN CORPUSCULAR HGB CONC 32.9 G/dL (31.0-37.0); MEAN CORPUSCULAR VOLUME 81 fL (80-100); MONOCYTES # (AUTO) 0.7 K/uL (0.1-1.0); MONOCYTES % (AUTO) 3.1 % (2.0-9.0); NEUTROPHILS # (AUTO) 21.8 K/uL (1.8-7.7); PLATELET COUNT (AUTO) 320 K/uL (150-450); RED BLOOD CELL COUNT(AUTO) 4.39 MIL/uL (4.00-5.20); RED CELL DISTRIBUTION WIDTH 14.7 % (11.5-14.5)
[2020-08-16 06:29] LABS: NEUTROPHILS % (AUTO) 93.9 % (40.0-70.0)
[2020-08-16 06:36] LABS: ALANINE AMINOTRANSFERASE 21 U/L (12-78); ALBUMIN 1.9 g/dL (3.4-5.0); ALKALINE PHOSPHATASE 85 U/L (46-116); ANION GAP 8 mmol/L (8-16); ASPARTATE AMINOTRANSFERASE 14 U/L (15-37); BILIRUBIN,TOTAL 0.5 mg/dL (0.1-1.0); C-REACTIVE PROTEIN QUANT 13.53 mg/dL (0.00-0.30); CARBON DIOXIDE 27 mmol/L (22-29); CHLORIDE 107 mmol/L (98-107); CREATININE 0.64 mg/dL (0.60-1.30); GLUCOSE,RANDOM 125 mg/dL (70-110); POTASSIUM 3.3 mmol/L (3.5-5.1); SODIUM SERUM 142 mmol/L (136-145); TOTAL PROTEIN, SERUM 6.1 g/dL (6.4-8.2); UREA NITROGEN, BLOOD 19 mg/dL (7-18)
[2020-08-16 06:49] LABS: GLOMERULAR FILTR. RATE CALC > 60 mL/min (>60)
[2020-08-16] MEDS: MORPHINE SULFATE 2 MG/ML SYRINGE IVP PRN ×3 (07:47→18:00)
[2020-08-16 08:00] VITALS: BP 126/49
[2020-08-16] MEDS: DEXAMETHASONE SOD PHOS 4 MG/ML VIAL IVP SCH (08:22)
[2020-08-16] MEDS: ZINC SULFATE 220 MG CAPSULE PO SCH ×2 (08:22→21:09)
[2020-08-16] MEDS: CHOLECALCIFEROL (VIT D3) 400 UNITS [10 MCG] TABLET PO SCH ×2 (08:22→21:17)
[2020-08-16] MEDS: DEXTROSE 5%-0.45% SODIUM CHL 1,000 ML IV SCH (08:22)
[2020-08-16] MEDS: SENNA 187 MG TABLET PO PRN (08:22)
[2020-08-16] MEDS: BENZONATATE 100 MG CAPSULE PO SCH ×4 (08:23→21:09)
[2020-08-16] MEDS: LACTOBAC ACID/BULG/BIFID/THERM TABLET PO SCH ×3 (08:23→21:09)
[2020-08-16] MEDS: ASCORBIC ACID 500 MG TABLET PO SCH ×2 (08:23→21:09)
[2020-08-16] MEDS: APIXABAN 5 MG TABLET PO SCH ×2 (08:23→21:09)
[2020-08-16] MEDS: PANTOPRAZOLE SODIUM 40 MG DR TABLET PO SCH ×2 (08:23→21:09)
[2020-08-16] MEDS: POLYETHYLENE GLYCOL 3350 17 GM PACKET PO SCH ×2 (08:25→09:00)
[2020-08-16] MEDS: POTASSIUM CHLORIDE 20 MEQ ER TABLET PO PRN (08:25)
[2020-08-16] MEDS ORDERED: SODIUM CHLORIDE 0.9% 250 ML IV ONE (08:26)
[2020-08-16] MEDS: LEVOFLOXACIN 750 MG/D5% WATER 150 ML IV SCH (08:27)
[2020-08-16 12:00] VITALS: BP 155/79
[2020-08-16 16:00] VITALS: BP 136/69
[2020-08-16 20:00] VITALS: BP 144/72
[2020-08-16] MEDS: AmLODIPine BESYLATE 5 MG TABLET PO SCH (21:09)
[2020-08-16] MEDS: LORazepam 2 MG/ML VIAL IVP PRN (21:17)
[2020-08-17] VITALS: BP 137/78
[2020-08-17] MEDS: MORPHINE SULFATE 2 MG/ML SYRINGE IVP PRN ×5 (00:59→21:52)
[2020-08-17 04:00] VITALS: BP 130/69
[2020-08-17] MEDS: DEXTROSE 5%-0.45% SODIUM CHL 1,000 ML IV SCH (04:38)
[2020-08-17] MEDS: MetroNIDAZOLE 500 MG/NACL 100 ML IV SCH ×3 (04:39→22:04)
[2020-08-17 06:06] LABS: EOSINOPHILS % (AUTO) 0 % (1.0-6.0); HEMOGLOBIN 11.3 g/dL (12.0-16.0); LYMPHOCYTES # (AUTO) 0.5 K/uL (1.0-4.8); LYMPHOCYTES % (AUTO) 2.2 % (22.0-44.0); MEAN CORPUSCULAR HEMOGLOBIN 26.4 pg (26.0-34.0); MEAN CORPUSCULAR HGB CONC 32.3 G/dL (31.0-37.0); MEAN CORPUSCULAR VOLUME 82 fL (80-100); MONOCYTES # (AUTO) 0.5 K/uL (0.1-1.0); MONOCYTES % (AUTO) 2.3 % (2.0-9.0); PLATELET COUNT (AUTO) 308 K/uL (150-450); RED BLOOD CELL COUNT(AUTO) 4.28 MIL/uL (4.00-5.20); RED CELL DISTRIBUTION WIDTH 14.9 % (11.5-14.5)
[2020-08-17 06:58] LABS: ALANINE AMINOTRANSFERASE 17 U/L (12-78); ALBUMIN 1.8 g/dL (3.4-5.0); ALKALINE PHOSPHATASE 81 U/L (46-116); ANION GAP 6 mmol/L (8-16); ASPARTATE AMINOTRANSFERASE 13 U/L (15-37); BILIRUBIN,TOTAL 0.5 mg/dL (0.1-1.0); CALCIUM, TOTAL 7.8 mg/dL (8.8-10.5); CARBON DIOXIDE 29 mmol/L (22-29); CHLORIDE 107 mmol/L (98-107); CREATININE 0.73 mg/dL (0.60-1.30); GLUCOSE,RANDOM 124 mg/dL (70-110); POTASSIUM 3.3 mmol/L (3.5-5.1); SODIUM SERUM 142 mmol/L (136-145); UREA NITROGEN, BLOOD 21 mg/dL (7-18)
[2020-08-17 07:18] LABS: NEUTROPHILS % (AUTO) 95.5 % (40.0-70.0)
[2020-08-17 07:38] LABS: GLOMERULAR FILTR. RATE CALC > 60 mL/min (>60)
[2020-08-17 08:00] VITALS: BP 128/67
[2020-08-17] MEDS: DEXAMETHASONE SOD PHOS 4 MG/ML VIAL IVP SCH (08:01)
[2020-08-17] MEDS: POLYETHYLENE GLYCOL 3350 17 GM PACKET PO SCH (08:01)
[2020-08-17] MEDS: ZINC SULFATE 220 MG CAPSULE PO SCH ×2 (08:01→09:00)
[2020-08-17] MEDS: BENZONATATE 100 MG CAPSULE PO SCH ×5 (08:02→21:52)
[2020-08-17] MEDS: APIXABAN 5 MG TABLET PO SCH (08:02)
[2020-08-17] MEDS: CHOLECALCIFEROL (VIT D3) 400 UNITS [10 MCG] TABLET PO SCH ×2 (08:02→09:00)
[2020-08-17] MEDS: PANTOPRAZOLE SODIUM 40 MG DR TABLET PO SCH (08:02)
[2020-08-17] MEDS: LACTOBAC ACID/BULG/BIFID/THERM TABLET PO SCH ×3 (08:02→21:52)
[2020-08-17] MEDS: LEVOFLOXACIN 750 MG/D5% WATER 150 ML IV SCH (08:03)
[2020-08-17] MEDS: ASCORBIC ACID 500 MG TABLET PO SCH (09:00)
[2020-08-17] MEDS: ENOXAPARIN SODIUM 80 MG/0.8 ML PF SYRINGE SQ SCH ×2 (09:52→21:51)
[2020-08-17] MEDS: PANTOPRAZOLE SODIUM 40 MG/VIAL IVP SCH ×2 (09:52→21:51)
[2020-08-17] MEDS: POTASSIUM CHL 10 MEQ/WATER 50 ML IV PRN ×3 (11:36→15:55)
[2020-08-17 12:00] VITALS: BP 119/67
[2020-08-17] MEDS: LORazepam 2 MG/ML VIAL IVP PRN (13:21)
[2020-08-17 16:00] VITALS: BP 125/65
[2020-08-17 20:00] VITALS: BP 148/85
[2020-08-17] MEDS: AmLODIPine BESYLATE 5 MG TABLET PO SCH ×2 (21:00→21:52)
[2020-08-18] VITALS: BP 155/86
[2020-08-18] MEDS: DEXTROSE 5%-0.45% SODIUM CHL 1,000 ML IV SCH ×2 (00:08→17:25)
[2020-08-18] MEDS: MORPHINE SULFATE 2 MG/ML SYRINGE IVP PRN ×7 (01:47→22:04)
[2020-08-18 04:00] VITALS: BP 122/68
[2020-08-18] MEDS: MetroNIDAZOLE 500 MG/NACL 100 ML IV SCH ×2 (04:24→15:07)
[2020-08-18 07:07] LABS: BASOPHILS % (AUTO) 0.9 % (0.0-2.0); EOSINOPHILS % (AUTO) 0.1 % (1.0-6.0); HEMATOCRIT 35.7 % (36-46); HEMOGLOBIN 11.6 g/dL (12.0-16.0); LYMPHOCYTES # (AUTO) 0.5 K/uL (1.0-4.8); LYMPHOCYTES % (AUTO) 2.8 % (22.0-44.0); MEAN CORPUSCULAR HEMOGLOBIN 26.7 pg (26.0-34.0); MEAN CORPUSCULAR HGB CONC 32.3 G/dL (31.0-37.0); MEAN CORPUSCULAR VOLUME 83 fL (80-100); MONOCYTES # (AUTO) 0.4 K/uL (0.1-1.0); MONOCYTES % (AUTO) 2.4 % (2.0-9.0); NEUTROPHILS # (AUTO) 15.9 K/uL (1.8-7.7); PLATELET COUNT (AUTO) 253 K/uL (150-450); RED BLOOD CELL COUNT(AUTO) 4.32 MIL/uL (4.00-5.20)
[2020-08-18 07:16] LABS: NEUTROPHILS % (AUTO) 93.8 % (40.0-70.0)
[2020-08-18 07:21] LABS: ALANINE AMINOTRANSFERASE 13 U/L (12-78); ALBUMIN 1.7 g/dL (3.4-5.0); ALKALINE PHOSPHATASE 89 U/L (46-116); ANION GAP 7 mmol/L (8-16); ASPARTATE AMINOTRANSFERASE 21 U/L (15-37); BILIRUBIN,TOTAL 0.4 mg/dL (0.1-1.0); C-REACTIVE PROTEIN QUANT 8.06 mg/dL (0.00-0.30); CALCIUM, TOTAL 7.8 mg/dL (8.8-10.5); CARBON DIOXIDE 28 mmol/L (22-29); CHLORIDE 107 mmol/L (98-107); CREATININE 0.69 mg/dL (0.60-1.30); GLUCOSE,RANDOM 122 mg/dL (70-110); POTASSIUM 3.6 mmol/L (3.5-5.1); SODIUM SERUM 142 mmol/L (136-145); TOTAL PROTEIN, SERUM 6.1 g/dL (6.4-8.2); UREA NITROGEN, BLOOD 22 mg/dL (7-18)
[2020-08-18 07:23] LABS: GLOMERULAR FILTR. RATE CALC > 60 mL/min (>60)
[2020-08-18] MEDS: LACTOBAC ACID/BULG/BIFID/THERM TABLET PO SCH ×2 (07:46→22:27)
[2020-08-18] MEDS: PANTOPRAZOLE SODIUM 40 MG/VIAL IVP SCH ×2 (07:46→22:21)
[2020-08-18] MEDS: BENZONATATE 100 MG CAPSULE PO SCH ×3 (07:46→22:21)
[2020-08-18] MEDS: DEXAMETHASONE SOD PHOS 4 MG/ML VIAL IVP SCH (07:47)
[2020-08-18] MEDS: ENOXAPARIN SODIUM 80 MG/0.8 ML PF SYRINGE SQ SCH ×2 (07:47→22:28)
[2020-08-18] MEDS: POLYETHYLENE GLYCOL 3350 17 GM PACKET PO SCH (07:47)
[2020-08-18 08:00] VITALS: BP 149/77
[2020-08-18] MEDS: LEVOFLOXACIN 750 MG/D5% WATER 150 ML IV SCH (09:59)
[2020-08-18 12:00] VITALS: BP 133/65
[2020-08-18 15:12] VITALS: BP 162/81
[2020-08-18] MEDS: LORazepam 2 MG/ML VIAL IVP PRN ×2 (18:09→18:12)
[2020-08-18 20:44] VITALS: BP 146/76
[2020-08-18] MEDS: AmLODIPine BESYLATE 5 MG TABLET PO SCH (22:21)
[2020-08-19] MEDS: LORazepam 2 MG/ML VIAL IVP PRN ×2 (00:44→06:40)
[2020-08-19 01:02] VITALS: BP 146/66
[2020-08-19] MEDS: MORPHINE SULFATE 2 MG/ML SYRINGE IVP PRN ×2 (03:59→09:26)
[2020-08-19 05:43] VITALS: BP 144/88
[2020-08-19 07:39] VITALS: BP 161/79
[2020-08-19] MEDS: PANTOPRAZOLE SODIUM 40 MG/VIAL IVP SCH ×2 (09:23→20:42)
[2020-08-19] MEDS: LACTOBAC ACID/BULG/BIFID/THERM TABLET PO SCH (09:23)
[2020-08-19] MEDS: DEXAMETHASONE SOD PHOS 4 MG/ML VIAL IVP SCH (09:23)
[2020-08-19] MEDS: BENZONATATE 100 MG CAPSULE PO SCH ×3 (09:24→22:10)
[2020-08-19] MEDS: ENOXAPARIN SODIUM 80 MG/0.8 ML PF SYRINGE SQ SCH ×2 (09:24→20:42)
[2020-08-19] MEDS: POLYETHYLENE GLYCOL 3350 17 GM PACKET PO SCH (09:24)
[2020-08-19] MEDS ORDERED: RAPID SEQUENCE KIT [RSI] 1 EACH KIT MISC ONE (10:35)
[2020-08-19] MEDS ORDERED: SODIUM CHLORIDE 0.9% 500 ML IV ONE (11:23)
[2020-08-19] MEDS ORDERED: FentaNYL CITRATE PF 100 MCG/2 ML VIAL ONE (11:27)
[2020-08-19] MEDS ORDERED: MIDAZOLAM HCL 2 MG/2 ML VIAL ONE (11:27)
[2020-08-19] MEDS ORDERED: FentaNYL CITRATE PF 100 MCG/2 ML VIAL IVP ONE (11:30)
[2020-08-19] MEDS ORDERED: MIDAZOLAM HCL 2 MG/2 ML VIAL IVP ONE ×2 (11:30→12:00)
[2020-08-19] MEDS ORDERED: NOREPINEPHRINE 4 MG/D5%-WATER 250 ML IV ONE (11:47)
[2020-08-19 12:00] VITALS: BP 158/86
[2020-08-19] MEDS ORDERED: MIDAZOLAM HCL 100 MG in DEXTROSE 5%-WATER 180 ML IV PRN (13:30)
[2020-08-19 13:36] LABS: ABG A-A DIFF O2 538.7 mmHg (10-20.0); ABG BASE EXCESS -0.3 mmol/L (-2.0-3.0); ABG CARBOXYHEMOGLOBIN 0.7 % (0.0-1.5); ABG METHEMOGLOBIN 0.3 % (0.0-1.5); ABG OXYGEN CONTENT 16.8 mL/dL (15.0-23.0); ABG OXYGEN SATURATION 96.7 % (95.0-98.0); ABG OXYHEMOGLOBIN 95.7 % (94.0-100.0); ABG TOTAL HEMOGLOBIN 12.4 G/dL (12.0-18.0); PO2, ARTERIAL BG 102.6 mmHg (71.0-79.0); SOURCE, BLOOD GAS ARTERIAL; TEMPERATURE, FAHRENHEIT, BG 99.4 FAHREN (96.0-98.6)
[2020-08-19 13:37] LABS: ABG PCO2 71 mmHg (35-45); O2 DEVICE,BLOOD GAS VENTILATOR (ROOM AIR); PEEP,BG 10 cm H2O; SITE, BLOOD GAS ARTERIAL LINE; VT, ABG 450 ml
[2020-08-19] MEDS: FentaNYL CIT 1000MCG/D5%-WATER 100 ML IV PRN ×2 (13:53→18:33)
[2020-08-19 14:39] LABS: BASOPHILS % (AUTO) 0.4 % (0.0-2.0); EOSINOPHILS % (AUTO) 0.1 % (1.0-6.0); HEMATOCRIT 34.1 % (36-46); HEMOGLOBIN 10.8 g/dL (12.0-16.0); LYMPHOCYTES # (AUTO) 0.1 K/uL (1.0-4.8); LYMPHOCYTES % (AUTO) 0.7 % (22.0-44.0); MEAN CORPUSCULAR HEMOGLOBIN 26.2 pg (26.0-34.0); MEAN CORPUSCULAR HGB CONC 31.7 G/dL (31.0-37.0); MEAN CORPUSCULAR VOLUME 83 fL (80-100); MONOCYTES # (AUTO) 0.4 K/uL (0.1-1.0); MONOCYTES % (AUTO) 2.1 % (2.0-9.0); NEUTROPHILS # (AUTO) 17.4 K/uL (1.8-7.7); PLATELET COUNT (AUTO) 249 K/uL (150-450); RED BLOOD CELL COUNT(AUTO) 4.12 MIL/uL (4.00-5.20)
[2020-08-19 14:40] LABS: NEUTROPHILS % (AUTO) 96.7 % (40.0-70.0)
[2020-08-19 15:04] LABS: ANION GAP 4 mmol/L (8-16); CALCIUM, TOTAL 7.7 mg/dL (8.8-10.5); CARBON DIOXIDE 31 mmol/L (22-29); CHLORIDE 106 mmol/L (98-107); CREATININE 0.64 mg/dL (0.60-1.30); GLUCOSE,RANDOM 186 mg/dL (70-110); POTASSIUM 4.1 mmol/L (3.5-5.1); SODIUM SERUM 141 mmol/L (136-145); UREA NITROGEN, BLOOD 21 mg/dL (7-18)
[2020-08-19 15:11] LABS: ALANINE AMINOTRANSFERASE 16 U/L (12-78); ALBUMIN 1.6 g/dL (3.4-5.0); ALKALINE PHOSPHATASE 90 U/L (46-116); ASPARTATE AMINOTRANSFERASE 18 U/L (15-37); BILIRUBIN,TOTAL 0.4 mg/dL (0.1-1.0); TOTAL PROTEIN, SERUM 5.8 g/dL (6.4-8.2)
[2020-08-19 15:15] LABS: GLOMERULAR FILTR. RATE CALC > 60 mL/min (>60)
[2020-08-19] MEDS: PROPOFOL 1000 MG/ISO-OSM 100 ML IV PRN ×2 (15:50→18:34)
[2020-08-19 16:00] VITALS: BP 104/48
[2020-08-19] MEDS: DEXTROSE 5%-0.45% SODIUM CHL 1,000 ML IV SCH (17:00)
[2020-08-19 20:00] VITALS: BP 98/45
[2020-08-19] MEDS: NOREPINEPHRINE 4 MG/D5%-WATER 250 ML IV PRN (20:06)
[2020-08-19] MEDS: AmLODIPine BESYLATE 5 MG TABLET PO SCH (22:10)
[2020-08-20] VITALS: BP 115/53
[2020-08-20] MEDS ORDERED: SODIUM CHLORIDE 0.9% 250 ML IV ONE (00:04)
[2020-08-20] MEDS ORDERED: SODIUM CHLORIDE 0.9% 500 ML IV ONE (00:05)
[2020-08-20] MEDS: FentaNYL CIT 1000MCG/D5%-WATER 100 ML IV PRN ×4 (00:33→18:10)
[2020-08-20] MEDS: NOREPINEPHRINE 4 MG/D5%-WATER 250 ML IV PRN ×3 (02:15→23:03)
[2020-08-20] MEDS: PROPOFOL 1000 MG/ISO-OSM 100 ML IV PRN ×5 (03:13→23:24)
[2020-08-20 04:00] VITALS: BP 103/47
[2020-08-20 05:20] LABS: EOSINOPHILS % (AUTO) 0.1 % (1.0-6.0); HEMATOCRIT 33.4 % (36-46); HEMOGLOBIN 10.5 g/dL (12.0-16.0); LYMPHOCYTES # (AUTO) 0.4 K/uL (1.0-4.8); LYMPHOCYTES % (AUTO) 3.1 % (22.0-44.0); MEAN CORPUSCULAR HEMOGLOBIN 26.2 pg (26.0-34.0); MEAN CORPUSCULAR HGB CONC 31.4 G/dL (31.0-37.0); MEAN CORPUSCULAR VOLUME 83 fL (80-100); MONOCYTES # (AUTO) 0.4 K/uL (0.1-1.0); NEUTROPHILS # (AUTO) 11.3 K/uL (1.8-7.7); PLATELET COUNT (AUTO) 248 K/uL (150-450); RED CELL DISTRIBUTION WIDTH 15.1 % (11.5-14.5)
[2020-08-20 05:23] LABS: APPEARANCE,URINE CLOUDY (CLEAR); BILIRUBIN,URINE NEGATIVE (NEGATIVE); GLUCOSE, URINE (UA) NEGATIVE (NEGATIVE); KETONES,URINE NEGATIVE (NEGATIVE); LEUKOCYTE ESTERASE ,URINE NEGATIVE (NEGATIVE); NITRATE,URINE NEGATIVE (NEGATIVE); OCCULT BLOOD,URINE MODERATE (NEGATIVE); PROTEIN,URINE POS 1+ (NEGATIVE); UROBILINOGEN,URINE 0.2 mg/dL (<=1.0)
[2020-08-20 05:58] LABS: BACTERIA,URINE Few /HPF (None Seen); RBC,URINE 0-2 /HPF (0-2); SQUAMOUS EPITHELIAL CELL,UR Rare /LPF (None Seen)
[2020-08-20 06:20] LABS: NEUTROPHILS % (AUTO) 93.8 % (40.0-70.0)
[2020-08-20 06:33] LABS: ANION GAP 7 mmol/L (8-16); C-REACTIVE PROTEIN QUANT 7.15 mg/dL (0.00-0.30); CALCIUM, TOTAL 7.7 mg/dL (8.8-10.5); CARBON DIOXIDE 27 mmol/L (22-29); CHLORIDE 103 mmol/L (98-107); GLUCOSE,RANDOM 221 mg/dL (70-110); POTASSIUM 3.8 mmol/L (3.5-5.1); SODIUM SERUM 137 mmol/L (136-145); UREA NITROGEN, BLOOD 27 mg/dL (7-18)
[2020-08-20] MEDS ORDERED: ETOMIDATE 2 MG/ML 10 ML VIAL IVP ONE (06:40)
[2020-08-20] MEDS ORDERED: ROCURONIUM BROMIDE 10 MG/ML 5 ML VIAL IVP ONE (06:40)
[2020-08-20] MEDS ORDERED: LIDOCAINE/PF 2% 5 ML VIAL IM ONE (06:40)
[2020-08-20 06:50] LABS: GLOMERULAR FILTR. RATE CALC > 60 mL/min (>60)
[2020-08-20 08:00] VITALS: BP 111/50
[2020-08-20] MEDS: POLYETHYLENE GLYCOL 3350 17 GM PACKET PO SCH (08:58)
[2020-08-20] MEDS: PANTOPRAZOLE SODIUM 40 MG/VIAL IVP SCH ×2 (08:59→20:47)
[2020-08-20] MEDS: ENOXAPARIN SODIUM 80 MG/0.8 ML PF SYRINGE SQ SCH ×2 (08:59→20:47)
[2020-08-20] MEDS: DEXAMETHASONE SOD PHOS 4 MG/ML VIAL IVP SCH (08:59)
[2020-08-20] MEDS: LACTOBAC ACID/BULG/BIFID/THERM TABLET PO SCH ×3 (08:59→20:47)
[2020-08-20] MEDS: BENZONATATE 100 MG CAPSULE PO SCH ×2 (09:00→16:00)
[2020-08-20] MEDS: DEXTROSE 5%-0.45% SODIUM CHL 1,000 ML IV SCH (11:54)
[2020-08-20 12:00] VITALS: BP 145/61
[2020-08-20 16:00] VITALS: BP 116/51
[2020-08-20 16:58] LABS: ABG A-A DIFF O2 377.4 mmHg (10-20.0); ABG BASE EXCESS 0.2 mmol/L (-2.0-3.0); ABG CARBOXYHEMOGLOBIN 0.5 % (0.0-1.5); ABG METHEMOGLOBIN 0.3 % (0.0-1.5); ABG OXYGEN CONTENT 14.9 mL/dL (15.0-23.0); ABG OXYGEN SATURATION 93.5 % (95.0-98.0); ABG OXYHEMOGLOBIN 92.8 % (94.0-100.0); ABG PCO2 53 mmHg (35-45); ABG PH 7.313 (7.35-7.450); ABG TOTAL HEMOGLOBIN 11.4 G/dL (12.0-18.0); PO2, ARTERIAL BG 65.2 mmHg (71.0-79.0); SOURCE, BLOOD GAS ARTERIAL; TEMPERATURE, FAHRENHEIT, BG 97.8 FAHREN (96.0-98.6)
[2020-08-20 16:59] LABS: O2 DEVICE,BLOOD GAS VENTILATOR (ROOM AIR); SITE, BLOOD GAS ARTERIAL LINE
[2020-08-20 17:00] LABS: PEEP,BG 10 cm H2O; SPONTANEOUS VT, BG 429 ml; VT, ABG 450 ml
[2020-08-20] MEDS: CISATRACURIUM BESYLATE 50 MG in DEXTROSE 5%-WATER 245 ML IV PRN (20:48)
[2020-08-20] MEDS: AmLODIPine BESYLATE 5 MG TABLET PO SCH (21:00)
[2020-08-20 22:19] VITALS: BP 115/48
[2020-08-21 00:16] VITALS: BP 130/53
[2020-08-21] MEDS: FentaNYL CIT 1000MCG/D5%-WATER 100 ML IV PRN ×4 (00:37→19:02)
[2020-08-21] MEDS: CISATRACURIUM BESYLATE 50 MG in DEXTROSE 5%-WATER 245 ML IV PRN ×6 (00:46→23:22)
[2020-08-21] MEDS: PROPOFOL 1000 MG/ISO-OSM 100 ML IV PRN ×4 (03:46→19:03)
[2020-08-21 04:08] VITALS: BP 143/53
[2020-08-21 08:00] VITALS: BP 134/51
[2020-08-21] MEDS: PANTOPRAZOLE SODIUM 40 MG/VIAL IVP SCH ×2 (08:11→21:28)
[2020-08-21] MEDS: DEXAMETHASONE SOD PHOS 4 MG/ML VIAL IVP SCH (08:11)
[2020-08-21] MEDS: POLYETHYLENE GLYCOL 3350 17 GM PACKET PO SCH (08:11)
[2020-08-21] MEDS: ENOXAPARIN SODIUM 80 MG/0.8 ML PF SYRINGE SQ SCH ×2 (08:12→21:28)
[2020-08-21] MEDS: LACTOBAC ACID/BULG/BIFID/THERM TABLET PO SCH ×2 (08:12→21:28)
[2020-08-21] MEDS: DEXTROSE 5%-0.45% SODIUM CHL 1,000 ML IV SCH (08:13)
[2020-08-21 12:00] VITALS: BP 128/49
[2020-08-21 16:00] VITALS: BP 121/47
[2020-08-21 20:00] VITALS: BP 97/45
[2020-08-21] MEDS: AmLODIPine BESYLATE 5 MG TABLET PO SCH (21:00)
[2020-08-22] VITALS: BP 107/49
[2020-08-22] MEDS: PROPOFOL 1000 MG/ISO-OSM 100 ML IV PRN ×5 (00:29→18:07)
[2020-08-22] MEDS: FentaNYL CIT 1000MCG/D5%-WATER 100 ML IV PRN ×5 (02:14→22:02)
[2020-08-22] MEDS: CISATRACURIUM BESYLATE 50 MG in DEXTROSE 5%-WATER 245 ML IV PRN ×6 (03:01→22:02)
[2020-08-22 04:00] VITALS: BP 120/48
[2020-08-22 07:06] LABS: BASOPHILS % (AUTO) 0.1 % (0.0-2.0); EOSINOPHILS % (AUTO) 0.4 % (1.0-6.0); HEMOGLOBIN 10.1 g/dL (12.0-16.0); LYMPHOCYTES # (AUTO) 0.6 K/uL (1.0-4.8); LYMPHOCYTES % (AUTO) 4.1 % (22.0-44.0); MEAN CORPUSCULAR HEMOGLOBIN 26.9 pg (26.0-34.0); MEAN CORPUSCULAR HGB CONC 32.5 G/dL (31.0-37.0); MEAN CORPUSCULAR VOLUME 83 fL (80-100); MONOCYTES # (AUTO) 0.4 K/uL (0.1-1.0); NEUTROPHILS # (AUTO) 12.5 K/uL (1.8-7.7); PLATELET COUNT (AUTO) 221 K/uL (150-450); RED BLOOD CELL COUNT(AUTO) 3.74 MIL/uL (4.00-5.20); RED CELL DISTRIBUTION WIDTH 15.2 % (11.5-14.5)
[2020-08-22 07:29] LABS: ALANINE AMINOTRANSFERASE 17 U/L (12-78); ALBUMIN 1.5 g/dL (3.4-5.0); ALKALINE PHOSPHATASE 91 U/L (46-116); ANION GAP 4 mmol/L (8-16); ASPARTATE AMINOTRANSFERASE 25 U/L (15-37); BILIRUBIN,TOTAL 0.3 mg/dL (0.1-1.0); C-REACTIVE PROTEIN QUANT 3.51 mg/dL (0.00-0.30); CALCIUM, TOTAL 7.5 mg/dL (8.8-10.5); CARBON DIOXIDE 28 mmol/L (22-29); CHLORIDE 105 mmol/L (98-107); CREATININE 0.69 mg/dL (0.60-1.30); GLUCOSE,RANDOM 116 mg/dL (70-110); POTASSIUM 3.7 mmol/L (3.5-5.1); SODIUM SERUM 137 mmol/L (136-145); TOTAL PROTEIN, SERUM 5.3 g/dL (6.4-8.2); UREA NITROGEN, BLOOD 23 mg/dL (7-18)
[2020-08-22 07:31] LABS: GLOMERULAR FILTR. RATE CALC > 60 mL/min (>60)
[2020-08-22 08:00] VITALS: BP 108/21
[2020-08-22 08:29] LABS: NEUTROPHILS % (AUTO) 92.4 % (40.0-70.0)
[2020-08-22] MEDS: NOREPINEPHRINE 4 MG/D5%-WATER 250 ML IV PRN ×2 (08:58→23:25)
[2020-08-22] MEDS: POLYETHYLENE GLYCOL 3350 17 GM PACKET PO SCH (09:42)
[2020-08-22] MEDS: ENOXAPARIN SODIUM 80 MG/0.8 ML PF SYRINGE SQ SCH ×2 (09:42→20:33)
[2020-08-22] MEDS: LACTOBAC ACID/BULG/BIFID/THERM TABLET PO SCH ×2 (09:42→20:33)
[2020-08-22] MEDS: DEXAMETHASONE SOD PHOS 4 MG/ML VIAL IVP SCH (09:43)
[2020-08-22] MEDS: PANTOPRAZOLE SODIUM 40 MG/VIAL IVP SCH ×2 (09:43→20:32)
[2020-08-22 12:00] VITALS: BP 133/42
[2020-08-22 16:00] VITALS: BP 107/46
[2020-08-22 20:00] VITALS: BP 126/56
[2020-08-22] MEDS: SENNA 187 MG TABLET PO PRN (20:33)
[2020-08-22] MEDS: AmLODIPine BESYLATE 5 MG TABLET PO SCH (20:33)
[2020-08-23] VITALS: BP 129/54
[2020-08-23] MEDS: PROPOFOL 1000 MG/ISO-OSM 100 ML IV PRN ×6 (00:51→23:17)
[2020-08-23] MEDS: CISATRACURIUM BESYLATE 50 MG in DEXTROSE 5%-WATER 245 ML IV PRN ×6 (02:50→23:18)
[2020-08-23] MEDS: FentaNYL CIT 1000MCG/D5%-WATER 100 ML IV PRN ×4 (03:33→17:25)
[2020-08-23 04:00] VITALS: BP 154/54
[2020-08-23 06:22] LABS: BASOPHILS % (AUTO) 0.1 % (0.0-2.0); EOSINOPHILS % (AUTO) 1.6 % (1.0-6.0); HEMATOCRIT 31.8 % (36-46); HEMOGLOBIN 10.4 g/dL (12.0-16.0); LYMPHOCYTES # (AUTO) 0.9 K/uL (1.0-4.8); LYMPHOCYTES % (AUTO) 6.4 % (22.0-44.0); MEAN CORPUSCULAR HGB CONC 32.7 G/dL (31.0-37.0); MEAN CORPUSCULAR VOLUME 82 fL (80-100); MONOCYTES # (AUTO) 0.4 K/uL (0.1-1.0); MONOCYTES % (AUTO) 3.1 % (2.0-9.0); PLATELET COUNT (AUTO) 237 K/uL (150-450); RED BLOOD CELL COUNT(AUTO) 3.86 MIL/uL (4.00-5.20)
[2020-08-23 07:00] LABS: NEUTROPHILS % (AUTO) 88.8 % (40.0-70.0)
[2020-08-23 07:04] LABS: ANION GAP 4 mmol/L (8-16); CALCIUM, TOTAL 8.2 mg/dL (8.8-10.5); CARBON DIOXIDE 32 mmol/L (22-29); CHLORIDE 104 mmol/L (98-107); CREATININE 0.71 mg/dL (0.60-1.30); GLUCOSE,RANDOM 127 mg/dL (70-110); SODIUM SERUM 140 mmol/L (136-145); UREA NITROGEN, BLOOD 24 mg/dL (7-18)
[2020-08-23 07:05] LABS: GLOMERULAR FILTR. RATE CALC > 60 mL/min (>60)
[2020-08-23 08:00] VITALS: BP 140/47
[2020-08-23] MEDS: PANTOPRAZOLE SODIUM 40 MG/VIAL IVP SCH ×2 (08:04→20:26)
[2020-08-23] MEDS: LACTOBAC ACID/BULG/BIFID/THERM TABLET PO SCH ×2 (08:04→20:26)
[2020-08-23] MEDS: POLYETHYLENE GLYCOL 3350 17 GM PACKET PO SCH (08:04)
[2020-08-23] MEDS: ENOXAPARIN SODIUM 80 MG/0.8 ML PF SYRINGE SQ SCH ×2 (08:04→20:26)
[2020-08-23] MEDS: DEXAMETHASONE SOD PHOS 4 MG/ML VIAL IVP SCH (08:04)
[2020-08-23 10:11] LABS: ABG A-A DIFF O2 311.7 mmHg (10-20.0); ABG CARBOXYHEMOGLOBIN 0.7 % (0.0-1.5); ABG HCO3 28.5 mmol/L (22.0-26.0); ABG METHEMOGLOBIN 0.3 % (0.0-1.5); ABG OXYGEN CONTENT 14.3 mL/dL (15.0-23.0); ABG OXYGEN SATURATION 88.3 % (95.0-98.0); ABG OXYHEMOGLOBIN 87.4 % (94.0-100.0); ABG PCO2 58 mmHg (35-45); ABG PH 7.353 (7.35-7.450); ABG TOTAL HEMOGLOBIN 11.6 G/dL (12.0-18.0); PO2, ARTERIAL BG 51.9 mmHg (71.0-79.0); SOURCE, BLOOD GAS ARTERIAL
[2020-08-23] MEDS: HydrALAZINE HCL 20 MG/ML VIAL IVP PRN (10:29)
[2020-08-23 12:00] VITALS: BP 126/49
[2020-08-23 16:00] VITALS: BP 105/44
[2020-08-23 16:27] LABS: FERRITIN 405 ng/mL (8-252)
[2020-08-23] MEDS: NOREPINEPHRINE 4 MG/D5%-WATER 250 ML IV PRN (17:26)
[2020-08-23 18:29] LABS: O2 DEVICE,BLOOD GAS VENTILATOR (ROOM AIR); SITE, BLOOD GAS ARTERIAL LINE
[2020-08-23 18:30] LABS: PEEP,BG 5 cm H2O; VT, ABG 450 ml
[2020-08-23 20:00] VITALS: BP 118/49
[2020-08-23] MEDS: MAGNESIUM HYDROXIDE SUSPENSION 30 ML UDCUP PO PRN (20:26)
[2020-08-23] MEDS: AmLODIPine BESYLATE 5 MG TABLET PO SCH (20:28)
[2020-08-24] VITALS: BP 116/47
[2020-08-24] MEDS ORDERED: SODIUM CHLORIDE 0.9% 500 ML IV ONE (02:10)
[2020-08-24] MEDS: NOREPINEPHRINE 4 MG/D5%-WATER 250 ML IV PRN (02:11)
[2020-08-24 04:00] VITALS: BP 149/48
[2020-08-24] MEDS: CISATRACURIUM BESYLATE 50 MG in DEXTROSE 5%-WATER 245 ML IV PRN ×5 (04:26→21:23)
[2020-08-24] MEDS: FentaNYL CIT 1000MCG/D5%-WATER 100 ML IV PRN ×4 (04:39→19:00)
[2020-08-24] MEDS: PROPOFOL 1000 MG/ISO-OSM 100 ML IV PRN ×5 (04:40→19:00)
[2020-08-24 08:00] VITALS: BP 125/43
[2020-08-24] MEDS: PANTOPRAZOLE SODIUM 40 MG/VIAL IVP SCH ×2 (08:45→20:46)
[2020-08-24] MEDS: ENOXAPARIN SODIUM 80 MG/0.8 ML PF SYRINGE SQ SCH ×2 (08:45→20:46)
[2020-08-24] MEDS: POLYETHYLENE GLYCOL 3350 17 GM PACKET PO SCH (08:45)
[2020-08-24] MEDS: DEXAMETHASONE SOD PHOS 4 MG/ML VIAL IVP SCH (08:45)
[2020-08-24] MEDS: LACTOBAC ACID/BULG/BIFID/THERM TABLET PO SCH ×2 (08:45→20:46)
[2020-08-24 12:00] VITALS: BP 139/45
[2020-08-24] MEDS: SENNA 187 MG TABLET PO PRN (13:42)
[2020-08-24 16:00] VITALS: BP 127/45
[2020-08-24] MEDS ORDERED: LACTULOSE 20 GM/30 ML SOLUTION UDCUP PO PRN (18:30)
[2020-08-24 20:00] VITALS: BP 126/48
[2020-08-24] MEDS: AmLODIPine BESYLATE 5 MG TABLET PO SCH (20:46)
[2020-08-25] VITALS: BP 183/55
[2020-08-25] MEDS: PROPOFOL 1000 MG/ISO-OSM 100 ML IV PRN ×6 (01:43→17:42)
[2020-08-25 04:00] VITALS: BP 166/44
[2020-08-25] MEDS: FentaNYL CIT 1000MCG/D5%-WATER 100 ML IV PRN ×3 (05:29→16:36)
[2020-08-25 08:00] VITALS: BP 147/46
[2020-08-25 08:00] LABS: BASOPHILS % (AUTO) 0.2 % (0.0-2.0); EOSINOPHILS % (AUTO) 2.1 % (1.0-6.0); HEMATOCRIT 31.1 % (36-46); HEMOGLOBIN 10.2 g/dL (12.0-16.0); LYMPHOCYTES # (AUTO) 0.7 K/uL (1.0-4.8); LYMPHOCYTES % (AUTO) 5.2 % (22.0-44.0); MEAN CORPUSCULAR HEMOGLOBIN 26.9 pg (26.0-34.0); MEAN CORPUSCULAR HGB CONC 32.7 G/dL (31.0-37.0); MEAN CORPUSCULAR VOLUME 83 fL (80-100); MONOCYTES # (AUTO) 0.5 K/uL (0.1-1.0); MONOCYTES % (AUTO) 3.8 % (2.0-9.0); NEUTROPHILS # (AUTO) 12.4 K/uL (1.8-7.7); PLATELET COUNT (AUTO) 287 K/uL (150-450); RED BLOOD CELL COUNT(AUTO) 3.77 MIL/uL (4.00-5.20); RED CELL DISTRIBUTION WIDTH 15.1 % (11.5-14.5)
[2020-08-25 08:02] LABS: NEUTROPHILS % (AUTO) 88.7 % (40.0-70.0)
[2020-08-25 08:07] LABS: ALANINE AMINOTRANSFERASE 27 U/L (12-78); ALBUMIN 1.7 g/dL (3.4-5.0); ALKALINE PHOSPHATASE 139 U/L (46-116); ANION GAP 5 mmol/L (8-16); ASPARTATE AMINOTRANSFERASE 22 U/L (15-37); BILIRUBIN,TOTAL 0.5 mg/dL (0.1-1.0); CALCIUM, TOTAL 8.5 mg/dL (8.8-10.5); CARBON DIOXIDE 31 mmol/L (22-29); CHLORIDE 103 mmol/L (98-107); CREATININE 0.46 mg/dL (0.60-1.30); GLOMERULAR FILTR. RATE CALC > 60 mL/min (>60); GLUCOSE,RANDOM 102 mg/dL (70-110); PHOSPHORUS 3.6 mg/dL (2.5-4.9); POTASSIUM 4.2 mmol/L (3.5-5.1); SODIUM SERUM 139 mmol/L (136-145); UREA NITROGEN, BLOOD 20 mg/dL (7-18)
[2020-08-25] MEDS: ENOXAPARIN SODIUM 80 MG/0.8 ML PF SYRINGE SQ SCH ×2 (08:13→20:46)
[2020-08-25] MEDS: LACTOBAC ACID/BULG/BIFID/THERM TABLET PO SCH ×2 (08:13→20:45)
[2020-08-25] MEDS: DEXAMETHASONE SOD PHOS 4 MG/ML VIAL IVP SCH (08:13)
[2020-08-25] MEDS: PANTOPRAZOLE SODIUM 40 MG/VIAL IVP SCH ×2 (08:13→20:46)
[2020-08-25] MEDS: POLYETHYLENE GLYCOL 3350 17 GM PACKET PO SCH (08:14)
[2020-08-25 11:13] LABS: C-REACTIVE PROTEIN QUANT 8.02 mg/dL (0.00-0.30)
[2020-08-25 12:00] VITALS: BP 116/49
[2020-08-25] MEDS: NOREPINEPHRINE 4 MG/D5%-WATER 250 ML IV PRN (15:01)
[2020-08-25 16:00] VITALS: BP 113/43
[2020-08-25 16:47] LABS: ABG BASE EXCESS 10.7 mmol/L (-2.0-3.0); ABG CARBOXYHEMOGLOBIN 0.6 % (0.0-1.5); ABG HCO3 32.9 mmol/L (22.0-26.0); ABG METHEMOGLOBIN 0.3 % (0.0-1.5); ABG OXYGEN CONTENT 13.8 mL/dL (15.0-23.0); ABG OXYHEMOGLOBIN 92.2 % (94.0-100.0); ABG PCO2 55 mmHg (35-45); ABG PH 7.421 (7.35-7.450); ABG TOTAL HEMOGLOBIN 10.6 G/dL (12.0-18.0); PO2, ARTERIAL BG 63.7 mmHg (71.0-79.0); SOURCE, BLOOD GAS ARTERIAL; TEMPERATURE, FAHRENHEIT, BG 98.4 FAHREN (96.0-98.6)
[2020-08-25 16:54] LABS: O2 DEVICE,BLOOD GAS VENTILATOR (ROOM AIR); PEEP,BG 5 cm H2O; SITE, BLOOD GAS ARTERIAL LINE; SPONTANEOUS VT, BG 447 ml; VT, ABG 450 ml
[2020-08-25] MEDS: CISATRACURIUM BESYLATE 50 MG in DEXTROSE 5%-WATER 245 ML IV PRN ×2 (17:41→21:06)
[2020-08-25 18:35] LABS: APPEARANCE,URINE CLEAR (CLEAR); BILIRUBIN,URINE NEGATIVE (NEGATIVE); GLUCOSE, URINE (UA) NEGATIVE (NEGATIVE); KETONES,URINE NEGATIVE (NEGATIVE); LEUKOCYTE ESTERASE ,URINE NEGATIVE (NEGATIVE); NITRATE,URINE NEGATIVE (NEGATIVE); OCCULT BLOOD,URINE NEGATIVE (NEGATIVE); PH,URINE 5.5 (5.0-8.0); PROTEIN,URINE TRACE (NEGATIVE); UROBILINOGEN,URINE 0.2 mg/dL (<=1.0)
[2020-08-25 18:37] LABS: BACTERIA,URINE None Seen /HPF (None Seen); RBC,URINE None Seen /HPF (0-2); WBC,URINE None Seen /HPF (0-5)
[2020-08-25 20:00] VITALS: BP 199/72
[2020-08-25] MEDS ORDERED: SODIUM CHLORIDE 0.9% 500 ML IV ONE (20:43)
[2020-08-25] MEDS: AmLODIPine BESYLATE 5 MG TABLET PO SCH (20:47)
[2020-08-26] VITALS: BP 116/45
[2020-08-26] MEDS: CISATRACURIUM BESYLATE 50 MG in DEXTROSE 5%-WATER 245 ML IV PRN ×2 (00:42→03:25)
[2020-08-26] MEDS: FentaNYL CIT 1000MCG/D5%-WATER 100 ML IV PRN ×3 (00:43→10:54)
[2020-08-26] MEDS: PROPOFOL 1000 MG/ISO-OSM 100 ML IV PRN ×5 (03:24→18:08)
[2020-08-26 04:00] VITALS: BP 168/57
[2020-08-26 06:47] LABS: BASOPHILS % (AUTO) 0.1 % (0.0-2.0); EOSINOPHILS % (AUTO) 4.7 % (1.0-6.0); HEMATOCRIT 28.9 % (36-46); HEMOGLOBIN 9.5 g/dL (12.0-16.0); LYMPHOCYTES # (AUTO) 0.7 K/uL (1.0-4.8); LYMPHOCYTES % (AUTO) 6.8 % (22.0-44.0); MEAN CORPUSCULAR HEMOGLOBIN 27.3 pg (26.0-34.0); MEAN CORPUSCULAR HGB CONC 32.7 G/dL (31.0-37.0); MEAN CORPUSCULAR VOLUME 84 fL (80-100); MONOCYTES # (AUTO) 0.5 K/uL (0.1-1.0); MONOCYTES % (AUTO) 4.4 % (2.0-9.0); PLATELET COUNT (AUTO) 309 K/uL (150-450); RED BLOOD CELL COUNT(AUTO) 3.46 MIL/uL (4.00-5.20); RED CELL DISTRIBUTION WIDTH 15.3 % (11.5-14.5)
[2020-08-26 07:13] LABS: ALANINE AMINOTRANSFERASE 22 U/L (12-78); ALBUMIN 1.5 g/dL (3.4-5.0); ALKALINE PHOSPHATASE 138 U/L (46-116); ANION GAP 3 mmol/L (8-16); ASPARTATE AMINOTRANSFERASE 21 U/L (15-37); BILIRUBIN,TOTAL 0.4 mg/dL (0.1-1.0); CALCIUM, TOTAL 8.3 mg/dL (8.8-10.5); CARBON DIOXIDE 34 mmol/L (22-29); CHLORIDE 103 mmol/L (98-107); CREATININE 0.49 mg/dL (0.60-1.30); GLUCOSE,RANDOM 112 mg/dL (70-110); SODIUM SERUM 140 mmol/L (136-145); TOTAL PROTEIN, SERUM 5.7 g/dL (6.4-8.2); UREA NITROGEN, BLOOD 20 mg/dL (7-18)
[2020-08-26 07:14] LABS: GLOMERULAR FILTR. RATE CALC > 60 mL/min (>60)
[2020-08-26] MEDS: CISATRACURIUM BESYLATE 100 MG in DEXTROSE 5%-WATER 240 ML IV PRN ×3 (07:40→21:33)
[2020-08-26 08:00] VITALS: BP 155/55
[2020-08-26 08:07] LABS: C-REACTIVE PROTEIN QUANT 10.07 mg/dL (0.00-0.30)
[2020-08-26] MEDS: ENOXAPARIN SODIUM 80 MG/0.8 ML PF SYRINGE SQ SCH ×2 (10:12→20:50)
[2020-08-26] MEDS: POLYETHYLENE GLYCOL 3350 17 GM PACKET PO SCH (10:12)
[2020-08-26] MEDS: LACTOBAC ACID/BULG/BIFID/THERM TABLET PO SCH ×2 (10:12→20:50)
[2020-08-26] MEDS: PANTOPRAZOLE SODIUM 40 MG/VIAL IVP SCH ×2 (10:13→20:50)
[2020-08-26] MEDS: DEXAMETHASONE SOD PHOS 4 MG/ML VIAL IVP SCH (10:13)
[2020-08-26 12:00] VITALS: BP 155/52
[2020-08-26] MEDS: ACETAMINOPHEN 325 MG TABLET PO PRN ×2 (13:44→16:41)
[2020-08-26 16:00] VITALS: BP 113/69
[2020-08-26] MEDS: NOREPINEPHRINE 4 MG/D5%-WATER 250 ML IV PRN (18:05)
[2020-08-26 20:00] VITALS: BP 129/55
[2020-08-26] MEDS: AmLODIPine BESYLATE 5 MG TABLET PO SCH (20:50)
[2020-08-27] VITALS: BP 148/55
[2020-08-27] MEDS: FentaNYL CIT 1000MCG/D5%-WATER 100 ML IV PRN ×3 (02:34→18:25)
[2020-08-27] MEDS: PROPOFOL 1000 MG/ISO-OSM 100 ML IV PRN ×5 (02:35→19:29)
[2020-08-27 04:00] VITALS: BP 122/46
[2020-08-27] MEDS: CISATRACURIUM BESYLATE 100 MG in DEXTROSE 5%-WATER 240 ML IV PRN ×3 (05:11→21:18)
[2020-08-27 07:29] LABS: BASOPHILS % (AUTO) 0.1 % (0.0-2.0); EOSINOPHILS % (AUTO) 4.4 % (1.0-6.0); HEMATOCRIT 28.6 % (36-46); HEMOGLOBIN 9.4 g/dL (12.0-16.0); LYMPHOCYTES # (AUTO) 0.7 K/uL (1.0-4.8); LYMPHOCYTES % (AUTO) 7.4 % (22.0-44.0); MEAN CORPUSCULAR HEMOGLOBIN 27.2 pg (26.0-34.0); MEAN CORPUSCULAR HGB CONC 32.9 G/dL (31.0-37.0); MEAN CORPUSCULAR VOLUME 83 fL (80-100); MONOCYTES # (AUTO) 0.4 K/uL (0.1-1.0); MONOCYTES % (AUTO) 3.9 % (2.0-9.0); NEUTROPHILS # (AUTO) 8.2 K/uL (1.8-7.7); NEUTROPHILS % (AUTO) 84.2 % (40.0-70.0); PLATELET COUNT (AUTO) 334 K/uL (150-450); RED BLOOD CELL COUNT(AUTO) 3.47 MIL/uL (4.00-5.20); RED CELL DISTRIBUTION WIDTH 15.5 % (11.5-14.5)
[2020-08-27 07:42] LABS: ANION GAP 0 mmol/L (8-16); CALCIUM, TOTAL 8.3 mg/dL (8.8-10.5); CARBON DIOXIDE 35 mmol/L (22-29); CHLORIDE 101 mmol/L (98-107); CREATININE 0.53 mg/dL (0.60-1.30); GLUCOSE,RANDOM 85 mg/dL (70-110); SODIUM SERUM 136 mmol/L (136-145); UREA NITROGEN, BLOOD 17 mg/dL (7-18)
[2020-08-27 07:44] LABS: GLOMERULAR FILTR. RATE CALC > 60 mL/min (>60)
[2020-08-27 08:00] VITALS: BP 112/45
[2020-08-27] MEDS: ENOXAPARIN SODIUM 80 MG/0.8 ML PF SYRINGE SQ SCH ×2 (09:00→20:37)
[2020-08-27] MEDS: PANTOPRAZOLE SODIUM 40 MG/VIAL IVP SCH ×2 (09:09→20:37)
[2020-08-27] MEDS: POLYETHYLENE GLYCOL 3350 17 GM PACKET PO SCH (09:10)
[2020-08-27] MEDS: DEXAMETHASONE SOD PHOS 4 MG/ML VIAL IVP SCH (09:10)
[2020-08-27] MEDS: LACTOBAC ACID/BULG/BIFID/THERM TABLET PO SCH ×2 (09:11→20:37)
[2020-08-27] MEDS: HydrALAZINE HCL 20 MG/ML VIAL IVP PRN ×2 (10:16→17:58)
[2020-08-27] MEDS ORDERED: MIDAZOLAM HCL 100 MG in DEXTROSE 5%-WATER 180 ML IV PRN (11:00)
[2020-08-27] MEDS: METOPROLOL TARTRATE 25 MG TABLET PO SCH ×2 (11:18→20:37)
[2020-08-27 12:00] VITALS: BP 138/49
[2020-08-27 16:00] VITALS: BP 170/52
[2020-08-27 18:21] LABS: C-REACTIVE PROTEIN QUANT 12.28 mg/dL (0.00-0.30)
[2020-08-27 20:00] VITALS: BP 113/38
[2020-08-27] MEDS: AmLODIPine BESYLATE 5 MG TABLET PO SCH (20:36)
[2020-08-28] VITALS: BP 166/52
[2020-08-28] MEDS: HydrALAZINE HCL 20 MG/ML VIAL IVP PRN (01:03)
[2020-08-28] MEDS: FentaNYL CIT 1000MCG/D5%-WATER 100 ML IV PRN ×4 (01:41→19:52)
[2020-08-28] MEDS: PROPOFOL 1000 MG/ISO-OSM 100 ML IV PRN ×6 (02:22→21:56)
[2020-08-28] MEDS: CISATRACURIUM BESYLATE 100 MG in DEXTROSE 5%-WATER 240 ML IV PRN ×4 (03:54→22:47)
[2020-08-28 04:00] VITALS: BP 115/38
[2020-08-28 06:58] LABS: ANION GAP 0 mmol/L (8-16); CALCIUM, TOTAL 8.3 mg/dL (8.8-10.5); CARBON DIOXIDE 36 mmol/L (22-29); CHLORIDE 98 mmol/L (98-107); CREATININE 0.52 mg/dL (0.60-1.30); GLUCOSE,RANDOM 154 mg/dL (70-110); POTASSIUM 3.5 mmol/L (3.5-5.1); SODIUM SERUM 134 mmol/L (136-145); UREA NITROGEN, BLOOD 19 mg/dL (7-18)
[2020-08-28 06:59] LABS: GLOMERULAR FILTR. RATE CALC > 60 mL/min (>60)
[2020-08-28 07:03] LABS: BASOPHILS % (AUTO) 0.1 % (0.0-2.0); EOSINOPHILS % (AUTO) 2.6 % (1.0-6.0); HEMOGLOBIN 9.5 g/dL (12.0-16.0); LYMPHOCYTES # (AUTO) 0.5 K/uL (1.0-4.8); LYMPHOCYTES % (AUTO) 4.8 % (22.0-44.0); MEAN CORPUSCULAR HEMOGLOBIN 27.3 pg (26.0-34.0); MEAN CORPUSCULAR HGB CONC 32.9 G/dL (31.0-37.0); MEAN CORPUSCULAR VOLUME 83 fL (80-100); MONOCYTES # (AUTO) 0.5 K/uL (0.1-1.0); MONOCYTES % (AUTO) 5.4 % (2.0-9.0); NEUTROPHILS # (AUTO) 8.7 K/uL (1.8-7.7); PLATELET COUNT (AUTO) 398 K/uL (150-450); RED BLOOD CELL COUNT(AUTO) 3.49 MIL/uL (4.00-5.20); RED CELL DISTRIBUTION WIDTH 15.4 % (11.5-14.5)
[2020-08-28 07:07] LABS: NEUTROPHILS % (AUTO) 87.1 % (40.0-70.0)
[2020-08-28 08:00] VITALS: BP 120/41
[2020-08-28] MEDS: METOPROLOL TARTRATE 25 MG TABLET PO SCH ×2 (09:00→20:05)
[2020-08-28] MEDS: LACTOBAC ACID/BULG/BIFID/THERM TABLET PO SCH ×2 (09:05→20:05)
[2020-08-28] MEDS: DEXAMETHASONE SOD PHOS 4 MG/ML VIAL IVP SCH (09:05)
[2020-08-28] MEDS: ENOXAPARIN SODIUM 80 MG/0.8 ML PF SYRINGE SQ SCH (09:06)
[2020-08-28] MEDS: POLYETHYLENE GLYCOL 3350 17 GM PACKET PO SCH (09:06)
[2020-08-28] MEDS: PANTOPRAZOLE SODIUM 40 MG/VIAL IVP SCH ×2 (09:06→20:05)
[2020-08-28 12:00] VITALS: BP 164/49
[2020-08-28 12:24] LABS: ABG A-A DIFF O2 478.4 mmHg (10-20.0); ABG BASE EXCESS 9.2 mmol/L (-2.0-3.0); ABG CARBOXYHEMOGLOBIN 0.9 % (0.0-1.5); ABG HCO3 31.6 mmol/L (22.0-26.0); ABG METHEMOGLOBIN 0.3 % (0.0-1.5); ABG OXYGEN CONTENT 11.5 mL/dL (15.0-23.0); ABG OXYGEN SATURATION 92.4 % (95.0-98.0); ABG OXYHEMOGLOBIN 91.3 % (94.0-100.0); ABG PCO2 64 mmHg (35-45); ABG PH 7.354 (7.35-7.450); ABG TOTAL HEMOGLOBIN 8.9 G/dL (12.0-18.0); PO2, ARTERIAL BG 62.7 mmHg (71.0-79.0); SOURCE, BLOOD GAS ARTERIAL; TEMPERATURE, FAHRENHEIT, BG 97.7 FAHREN (96.0-98.6)
[2020-08-28 12:25] LABS: O2 DEVICE,BLOOD GAS VENTILATOR (ROOM AIR); PEEP,BG 5 cm H2O; SITE, BLOOD GAS ARTERIAL LINE; SPONTANEOUS VT, BG 437 ml; VT, ABG 450 ml
[2020-08-28 16:00] VITALS: BP 115/42
[2020-08-28 16:42] LABS: C-REACTIVE PROTEIN QUANT 10.37 mg/dL (0.00-0.30)
[2020-08-28] MEDS: AMPICILLIN SODIUM/SULBACTAM NA 3 GM in SODIUM CHLORIDE 0.9% 100 ML IV SCH ×2 (16:57→21:56)
[2020-08-28] MEDS ORDERED: SODIUM CHLORIDE 0.9% 500 ML IV ONE (17:11)
[2020-08-28 20:00] VITALS: BP 118/44
[2020-08-28] MEDS: ENOXAPARIN SODIUM 40 MG/0.4 ML PF SYRINGE SQ SCH (20:05)
[2020-08-28] MEDS: AmLODIPine BESYLATE 5 MG TABLET PO SCH (20:05)
[2020-08-29] VITALS: BP 144/39
[2020-08-29] MEDS: FentaNYL CIT 1000MCG/D5%-WATER 100 ML IV PRN ×5 (02:11→20:18)
[2020-08-29] MEDS: PROPOFOL 1000 MG/ISO-OSM 100 ML IV PRN ×6 (02:12→23:52)
[2020-08-29 04:00] VITALS: BP 160/41
[2020-08-29] MEDS: CISATRACURIUM BESYLATE 100 MG in DEXTROSE 5%-WATER 240 ML IV PRN ×4 (05:02→22:35)
[2020-08-29] MEDS: AMPICILLIN SODIUM/SULBACTAM NA 3 GM in SODIUM CHLORIDE 0.9% 100 ML IV SCH ×4 (05:02→22:34)
[2020-08-29 08:00] VITALS: BP 149/40
[2020-08-29] MEDS: POLYETHYLENE GLYCOL 3350 17 GM PACKET PO SCH ×2 (09:00→09:02)
[2020-08-29] MEDS: ENOXAPARIN SODIUM 40 MG/0.4 ML PF SYRINGE SQ SCH ×2 (09:00→20:17)
[2020-08-29] MEDS: LACTOBAC ACID/BULG/BIFID/THERM TABLET PO SCH ×2 (09:03→20:17)
[2020-08-29] MEDS: METOPROLOL TARTRATE 25 MG TABLET PO SCH ×2 (09:03→20:18)
[2020-08-29] MEDS: PANTOPRAZOLE SODIUM 40 MG/VIAL IVP SCH ×2 (09:03→20:17)
[2020-08-29] MEDS: DEXAMETHASONE SOD PHOS 4 MG/ML VIAL IVP SCH (09:03)
[2020-08-29 12:00] VITALS: BP 153/41
[2020-08-29 16:00] VITALS: BP 117/46
[2020-08-29 20:00] VITALS: BP 117/46
[2020-08-29] MEDS: AmLODIPine BESYLATE 5 MG TABLET PO SCH (20:18)
[2020-08-29] MEDS ORDERED: SODIUM CHLORIDE 0.9% 500 ML IV ONE (23:08)
[2020-08-30] VITALS: BP 116/40
[2020-08-30] MEDS: FentaNYL CIT 1000MCG/D5%-WATER 100 ML IV PRN ×5 (02:01→20:48)
[2020-08-30 04:00] VITALS: BP 150/43
[2020-08-30] MEDS: PROPOFOL 1000 MG/ISO-OSM 100 ML IV PRN ×5 (04:04→20:48)
[2020-08-30] MEDS: AMPICILLIN SODIUM/SULBACTAM NA 3 GM in SODIUM CHLORIDE 0.9% 100 ML IV SCH ×4 (04:05→23:26)
[2020-08-30] MEDS: CISATRACURIUM BESYLATE 100 MG in DEXTROSE 5%-WATER 240 ML IV PRN ×3 (05:33→17:31)
[2020-08-30 06:35] LABS: BASOPHILS % (AUTO) 0.2 % (0.0-2.0); EOSINOPHILS % (AUTO) 3.9 % (1.0-6.0); HEMATOCRIT 28.4 % (36-46); HEMOGLOBIN 9.2 g/dL (12.0-16.0); LYMPHOCYTES # (AUTO) 0.7 K/uL (1.0-4.8); LYMPHOCYTES % (AUTO) 7.5 % (22.0-44.0); MEAN CORPUSCULAR HGB CONC 32.4 G/dL (31.0-37.0); MEAN CORPUSCULAR VOLUME 83 fL (80-100); MONOCYTES # (AUTO) 0.4 K/uL (0.1-1.0); MONOCYTES % (AUTO) 4.2 % (2.0-9.0); NEUTROPHILS % (AUTO) 84.2 % (40.0-70.0); PLATELET COUNT (AUTO) 426 K/uL (150-450); RED BLOOD CELL COUNT(AUTO) 3.41 MIL/uL (4.00-5.20); RED CELL DISTRIBUTION WIDTH 15.5 % (11.5-14.5)
[2020-08-30 07:15] LABS: ALANINE AMINOTRANSFERASE 23 U/L (12-78); ALBUMIN 1.6 g/dL (3.4-5.0); ALKALINE PHOSPHATASE 197 U/L (46-116); ANION GAP 5 mmol/L (8-16); ASPARTATE AMINOTRANSFERASE 14 U/L (15-37); BILIRUBIN,TOTAL 0.3 mg/dL (0.1-1.0); C-REACTIVE PROTEIN QUANT 10.17 mg/dL (0.00-0.30); CALCIUM, TOTAL 8.2 mg/dL (8.8-10.5); CARBON DIOXIDE 34 mmol/L (22-29); CHLORIDE 101 mmol/L (98-107); CREATININE 0.56 mg/dL (0.60-1.30); GLUCOSE,RANDOM 111 mg/dL (70-110); POTASSIUM 3.1 mmol/L (3.5-5.1); SODIUM SERUM 140 mmol/L (136-145); TOTAL PROTEIN, SERUM 5.9 g/dL (6.4-8.2); UREA NITROGEN, BLOOD 17 mg/dL (7-18)
[2020-08-30 07:26] LABS: GLOMERULAR FILTR. RATE CALC > 60 mL/min (>60)
[2020-08-30 08:00] VITALS: BP 127/34
[2020-08-30] MEDS: POTASSIUM CHL 10 MEQ/WATER 50 ML IV PRN ×3 (08:27→11:33)
[2020-08-30] MEDS: ENOXAPARIN SODIUM 40 MG/0.4 ML PF SYRINGE SQ SCH ×2 (08:27→20:47)
[2020-08-30] MEDS: METOPROLOL TARTRATE 25 MG TABLET PO SCH ×2 (08:28→20:47)
[2020-08-30] MEDS: LACTOBAC ACID/BULG/BIFID/THERM TABLET PO SCH ×2 (08:28→20:47)
[2020-08-30] MEDS: DEXAMETHASONE SOD PHOS 4 MG/ML VIAL IVP SCH (08:28)
[2020-08-30] MEDS: PANTOPRAZOLE SODIUM 40 MG/VIAL IVP SCH ×2 (08:28→20:47)
[2020-08-30] MEDS: POLYETHYLENE GLYCOL 3350 17 GM PACKET PO SCH (08:28)
[2020-08-30 12:00] VITALS: BP 113/35
[2020-08-30 16:00] VITALS: BP 91/33
[2020-08-30 20:00] VITALS: BP 176/62
[2020-08-30] MEDS: AmLODIPine BESYLATE 5 MG TABLET PO SCH (20:47)
[2020-08-31 00:10] VITALS: BP 153/55
[2020-08-31] MEDS: CISATRACURIUM BESYLATE 100 MG in DEXTROSE 5%-WATER 240 ML IV PRN ×4 (00:32→20:51)
[2020-08-31] MEDS: PROPOFOL 1000 MG/ISO-OSM 100 ML IV PRN ×5 (02:42→22:06)
[2020-08-31] MEDS: FentaNYL CIT 1000MCG/D5%-WATER 100 ML IV PRN ×4 (02:42→17:35)
[2020-08-31 04:28] VITALS: BP 160/58
[2020-08-31] MEDS: AMPICILLIN SODIUM/SULBACTAM NA 3 GM in SODIUM CHLORIDE 0.9% 100 ML IV SCH ×2 (05:13→10:28)
[2020-08-31 08:00] VITALS: BP 117/44
[2020-08-31] MEDS: METOPROLOL TARTRATE 25 MG TABLET PO SCH ×2 (08:34→20:28)
[2020-08-31] MEDS: LACTOBAC ACID/BULG/BIFID/THERM TABLET PO SCH ×2 (08:34→20:28)
[2020-08-31] MEDS: DEXAMETHASONE SOD PHOS 4 MG/ML VIAL IVP SCH (08:34)
[2020-08-31] MEDS: PANTOPRAZOLE SODIUM 40 MG/VIAL IVP SCH ×2 (08:34→20:28)
[2020-08-31] MEDS: ENOXAPARIN SODIUM 40 MG/0.4 ML PF SYRINGE SQ SCH ×2 (08:35→20:29)
[2020-08-31] MEDS: MULTIVITAMINS WITH MINERALS, THERAPEUTIC 15 ML UDCUP GT SCH (08:35)
[2020-08-31] MEDS: POLYETHYLENE GLYCOL 3350 17 GM PACKET PO SCH (08:35)
[2020-08-31 08:50] LABS: BASOPHILS % (AUTO) 0.3 % (0.0-2.0); EOSINOPHILS % (AUTO) 2.7 % (1.0-6.0); HEMATOCRIT 26.7 % (36-46); HEMOGLOBIN 8.6 g/dL (12.0-16.0); LYMPHOCYTES # (AUTO) 0.8 K/uL (1.0-4.8); LYMPHOCYTES % (AUTO) 7.1 % (22.0-44.0); MEAN CORPUSCULAR HEMOGLOBIN 26.8 pg (26.0-34.0); MEAN CORPUSCULAR HGB CONC 32.2 G/dL (31.0-37.0); MEAN CORPUSCULAR VOLUME 83 fL (80-100); MONOCYTES # (AUTO) 0.6 K/uL (0.1-1.0); MONOCYTES % (AUTO) 5.7 % (2.0-9.0); NEUTROPHILS # (AUTO) 9.4 K/uL (1.8-7.7); NEUTROPHILS % (AUTO) 84.2 % (40.0-70.0); PLATELET COUNT (AUTO) 440 K/uL (150-450); RED BLOOD CELL COUNT(AUTO) 3.21 MIL/uL (4.00-5.20); RED CELL DISTRIBUTION WIDTH 15.7 % (11.5-14.5)
[2020-08-31 09:01] LABS: ANION GAP 6 mmol/L (8-16); CALCIUM, TOTAL 8.2 mg/dL (8.8-10.5); CARBON DIOXIDE 35 mmol/L (22-29); CHLORIDE 104 mmol/L (98-107); CREATININE 0.45 mg/dL (0.60-1.30); GLUCOSE,RANDOM 140 mg/dL (70-110); POTASSIUM 3.4 mmol/L (3.5-5.1); SODIUM SERUM 145 mmol/L (136-145); UREA NITROGEN, BLOOD 18 mg/dL (7-18)
[2020-08-31 09:11] LABS: GLOMERULAR FILTR. RATE CALC > 60 mL/min (>60)
[2020-08-31 12:00] VITALS: BP 123/48
[2020-08-31 16:00] VITALS: BP 111/45
[2020-08-31 16:31] LABS: ANION GAP 3 mmol/L (8-16); CALCIUM, TOTAL 7.8 mg/dL (8.8-10.5); CARBON DIOXIDE 36 mmol/L (22-29); CHLORIDE 105 mmol/L (98-107); CREATININE 0.42 mg/dL (0.60-1.30); GLUCOSE,RANDOM 149 mg/dL (70-110); PHOSPHORUS 3.6 mg/dL (2.5-4.9); POTASSIUM 3.9 mmol/L (3.5-5.1); SODIUM SERUM 144 mmol/L (136-145); UREA NITROGEN, BLOOD 18 mg/dL (7-18)
[2020-08-31 16:33] LABS: GLOMERULAR FILTR. RATE CALC > 60 mL/min (>60)
[2020-08-31 20:00] VITALS: BP 139/48
[2020-08-31] MEDS: AmLODIPine BESYLATE 5 MG TABLET PO SCH (20:29)
[2020-09-01] VITALS: BP 135/47
[2020-09-01] MEDS: CISATRACURIUM BESYLATE 100 MG in DEXTROSE 5%-WATER 240 ML IV PRN ×4 (02:59→23:55)
[2020-09-01] MEDS: FentaNYL CIT 1000MCG/D5%-WATER 100 ML IV PRN ×4 (03:04→19:56)
[2020-09-01] MEDS: PROPOFOL 1000 MG/ISO-OSM 100 ML IV PRN ×5 (03:05→21:22)
[2020-09-01] MEDS: HydrALAZINE HCL 20 MG/ML VIAL IVP PRN (03:27)
[2020-09-01 04:00] VITALS: BP 172/45
[2020-09-01 08:00] VITALS: BP 162/48
[2020-09-01] MEDS: PANTOPRAZOLE SODIUM 40 MG/VIAL IVP SCH ×2 (08:52→20:00)
[2020-09-01] MEDS: MULTIVITAMINS WITH MINERALS, THERAPEUTIC 15 ML UDCUP GT SCH (08:52)
[2020-09-01] MEDS: DEXAMETHASONE SOD PHOS 4 MG/ML VIAL IVP SCH (08:52)
[2020-09-01] MEDS: ENOXAPARIN SODIUM 40 MG/0.4 ML PF SYRINGE SQ SCH ×2 (08:53→20:00)
[2020-09-01] MEDS: METOPROLOL TARTRATE 25 MG TABLET PO SCH ×2 (08:53→20:42)
[2020-09-01] MEDS: LACTOBAC ACID/BULG/BIFID/THERM TABLET PO SCH ×2 (08:53→22:46)
[2020-09-01] MEDS: POLYETHYLENE GLYCOL 3350 17 GM PACKET PO SCH (08:54)
[2020-09-01 12:00] VITALS: BP 104/37
[2020-09-01] MEDS ORDERED: SODIUM CHLORIDE 0.9% 250 ML IV ONE ×2 (12:34→19:36)
[2020-09-01 16:00] VITALS: BP 142/48
[2020-09-01 20:00] VITALS: BP 112/42
[2020-09-01] MEDS: AmLODIPine BESYLATE 5 MG TABLET PO SCH (20:41)
[2020-09-02] VITALS: BP 137/52
[2020-09-02] MEDS: FentaNYL CIT 1000MCG/D5%-WATER 100 ML IV PRN ×5 (00:55→23:36)
[2020-09-02] MEDS: PROPOFOL 1000 MG/ISO-OSM 100 ML IV PRN ×6 (02:05→23:36)
[2020-09-02 04:00] VITALS: BP 135/52
[2020-09-02] MEDS: CISATRACURIUM BESYLATE 100 MG in DEXTROSE 5%-WATER 240 ML IV PRN ×3 (06:14→19:54)
[2020-09-02 08:00] VITALS: BP 177/58
[2020-09-02 08:05] LABS: BASOPHILS % (AUTO) 0.5 % (0.0-2.0); EOSINOPHILS % (AUTO) 3.4 % (1.0-6.0); HEMATOCRIT 26.6 % (36-46); HEMOGLOBIN 8.6 g/dL (12.0-16.0); LYMPHOCYTES # (AUTO) 1.1 K/uL (1.0-4.8); LYMPHOCYTES % (AUTO) 9.4 % (22.0-44.0); MEAN CORPUSCULAR HEMOGLOBIN 26.8 pg (26.0-34.0); MEAN CORPUSCULAR HGB CONC 32.3 G/dL (31.0-37.0); MEAN CORPUSCULAR VOLUME 83 fL (80-100); MONOCYTES # (AUTO) 0.5 K/uL (0.1-1.0); MONOCYTES % (AUTO) 4.7 % (2.0-9.0); NEUTROPHILS # (AUTO) 9.6 K/uL (1.8-7.7); PLATELET COUNT (AUTO) 432 K/uL (150-450); RED CELL DISTRIBUTION WIDTH 15.8 % (11.5-14.5)
[2020-09-02 08:09] LABS: ANION GAP 4 mmol/L (8-16); CALCIUM, TOTAL 8.5 mg/dL (8.8-10.5); CARBON DIOXIDE 36 mmol/L (22-29); CHLORIDE 106 mmol/L (98-107); CREATININE 0.41 mg/dL (0.60-1.30); GLUCOSE,RANDOM 145 mg/dL (70-110); POTASSIUM 3.3 mmol/L (3.5-5.1); SODIUM SERUM 146 mmol/L (136-145); UREA NITROGEN, BLOOD 17 mg/dL (7-18)
[2020-09-02 08:10] LABS: GLOMERULAR FILTR. RATE CALC > 60 mL/min (>60)
[2020-09-02 08:14] LABS: PHOSPHORUS 2.5 mg/dL (2.5-4.9)
[2020-09-02] MEDS: METOPROLOL TARTRATE 25 MG TABLET PO SCH ×2 (08:35→20:41)
[2020-09-02] MEDS: LACTOBAC ACID/BULG/BIFID/THERM TABLET PO SCH ×2 (08:38→20:40)
[2020-09-02] MEDS: PANTOPRAZOLE SODIUM 40 MG/VIAL IVP SCH ×2 (08:38→20:40)
[2020-09-02] MEDS: MULTIVITAMINS WITH MINERALS, THERAPEUTIC 15 ML UDCUP GT SCH (08:38)
[2020-09-02] MEDS: ENOXAPARIN SODIUM 40 MG/0.4 ML PF SYRINGE SQ SCH ×2 (08:39→20:41)
[2020-09-02] MEDS: POLYETHYLENE GLYCOL 3350 17 GM PACKET PO SCH (08:39)
[2020-09-02] MEDS: DEXAMETHASONE SOD PHOS 4 MG/ML VIAL IVP SCH (08:39)
[2020-09-02] MEDS: POTASSIUM CHL 10 MEQ/WATER 50 ML IV PRN ×3 (08:40→10:52)
[2020-09-02] MEDS: HydrALAZINE HCL 20 MG/ML VIAL IVP PRN (11:29)
[2020-09-02 12:00] VITALS: BP 170/57
[2020-09-02] MEDS ORDERED: AmLODIPine BESYLATE 10 MG TABLET PO SCH (13:15)
[2020-09-02] MEDS ORDERED: AmLODIPine BESYLATE 10 MG TABLET PO ONE (13:15)
[2020-09-02] MEDS: CloNIDine HCL 0.1 MG TABLET PO PRN (13:31)
[2020-09-02 16:00] VITALS: BP 115/43
[2020-09-02 20:00] VITALS: BP 147/48
[2020-09-02 20:20] LABS: C-REACTIVE PROTEIN QUANT 7.98 mg/dL (0.00-0.30)
[2020-09-02] MEDS ORDERED: SODIUM CHLORIDE 0.9% 250 ML IV ONE (20:38)
[2020-09-02] MEDS ORDERED: SODIUM CHLORIDE 0.9% 500 ML IV ONE (20:38)
[2020-09-03] VITALS: BP 107/39
[2020-09-03] MEDS: CISATRACURIUM BESYLATE 100 MG in DEXTROSE 5%-WATER 240 ML IV PRN ×4 (02:50→21:32)
[2020-09-03] MEDS: FentaNYL CIT 1000MCG/D5%-WATER 100 ML IV PRN ×4 (02:51→20:07)
[2020-09-03 04:00] VITALS: BP 143/42
[2020-09-03] MEDS: PROPOFOL 1000 MG/ISO-OSM 100 ML IV PRN ×5 (04:15→23:51)
[2020-09-03 05:26] LABS: BASOPHILS % (AUTO) 0.3 % (0.0-2.0); HEMATOCRIT 23.5 % (36-46); HEMOGLOBIN 7.5 g/dL (12.0-16.0); LYMPHOCYTES # (AUTO) 0.8 K/uL (1.0-4.8); LYMPHOCYTES % (AUTO) 8.5 % (22.0-44.0); MEAN CORPUSCULAR HEMOGLOBIN 26.8 pg (26.0-34.0); MEAN CORPUSCULAR HGB CONC 31.9 G/dL (31.0-37.0); MEAN CORPUSCULAR VOLUME 84 fL (80-100); MONOCYTES # (AUTO) 0.6 K/uL (0.1-1.0); MONOCYTES % (AUTO) 6.1 % (2.0-9.0); NEUTROPHILS # (AUTO) 7.5 K/uL (1.8-7.7); NEUTROPHILS % (AUTO) 82.1 % (40.0-70.0); PLATELET COUNT (AUTO) 401 K/uL (150-450)
[2020-09-03 05:40] LABS: ANION GAP 3 mmol/L (8-16); CALCIUM, TOTAL 7.9 mg/dL (8.8-10.5); CARBON DIOXIDE 36 mmol/L (22-29); CHLORIDE 100 mmol/L (98-107); CREATININE 0.43 mg/dL (0.60-1.30); GLUCOSE,RANDOM 118 mg/dL (70-110); POTASSIUM 3.7 mmol/L (3.5-5.1); SODIUM SERUM 139 mmol/L (136-145); UREA NITROGEN, BLOOD 22 mg/dL (7-18)
[2020-09-03 05:45] LABS: GLOMERULAR FILTR. RATE CALC > 60 mL/min (>60)
[2020-09-03 08:00] VITALS: BP 122/40
[2020-09-03] MEDS: LACTOBAC ACID/BULG/BIFID/THERM TABLET PO SCH ×2 (08:30→20:07)
[2020-09-03] MEDS: METOPROLOL TARTRATE 25 MG TABLET PO SCH ×2 (08:30→20:07)
[2020-09-03] MEDS: MULTIVITAMINS WITH MINERALS, THERAPEUTIC 15 ML UDCUP GT SCH (08:30)
[2020-09-03] MEDS: PANTOPRAZOLE SODIUM 40 MG/VIAL IVP SCH ×2 (08:31→20:06)
[2020-09-03] MEDS: ENOXAPARIN SODIUM 40 MG/0.4 ML PF SYRINGE SQ SCH ×3 (08:31→20:07)
[2020-09-03] MEDS: DEXAMETHASONE SOD PHOS 4 MG/ML VIAL IVP SCH (08:31)
[2020-09-03] MEDS: POLYETHYLENE GLYCOL 3350 17 GM PACKET PO SCH (08:31)
[2020-09-03 12:00] VITALS: BP 165/47
[2020-09-03] MEDS: HydrALAZINE HCL 20 MG/ML VIAL IVP PRN (12:44)
[2020-09-03] MEDS: CloNIDine HCL 0.1 MG TABLET PO PRN (13:03)
[2020-09-03 16:00] VITALS: BP 123/41
[2020-09-03 16:09] LABS: ABG A-A DIFF O2 524.8 mmHg (10-20.0); ABG BASE EXCESS 8.9 mmol/L (-2.0-3.0); ABG CARBOXYHEMOGLOBIN 0.9 % (0.0-1.5); ABG HCO3 31.4 mmol/L (22.0-26.0); ABG METHEMOGLOBIN 0.3 % (0.0-1.5); ABG OXYGEN CONTENT 11.7 mL/dL (15.0-23.0); ABG OXYGEN SATURATION 92.3 % (95.0-98.0); ABG OXYHEMOGLOBIN 91.2 % (94.0-100.0); ABG PCO2 58 mmHg (35-45); ABG PH 7.383 (7.35-7.450); ABG TOTAL HEMOGLOBIN 9.1 G/dL (12.0-18.0); O2 DEVICE,BLOOD GAS VENTILATOR (ROOM AIR); PEEP,BG 5 cm H2O; PO2, ARTERIAL BG 58.1 mmHg (71.0-79.0); SITE, BLOOD GAS ARTERIAL LINE; SOURCE, BLOOD GAS ARTERIAL; SPONTANEOUS VT, BG 448 ml; TEMPERATURE, FAHRENHEIT, BG 97.9 FAHREN (96.0-98.6); VENT MODE, BG Press. Control Vent (ROOM AIR)
[2020-09-03 20:00] VITALS: BP 144/44
[2020-09-03] MEDS: AmLODIPine BESYLATE 10 MG TABLET PO SCH (20:07)
[2020-09-04] VITALS: BP 112/39
[2020-09-04] MEDS: FentaNYL CIT 1000MCG/D5%-WATER 100 ML IV PRN ×3 (03:21→17:47)
[2020-09-04] MEDS: CISATRACURIUM BESYLATE 100 MG in DEXTROSE 5%-WATER 240 ML IV PRN ×4 (03:23→22:02)
[2020-09-04 04:00] VITALS: BP 132/44
[2020-09-04 05:36] LABS: BASOPHILS % (AUTO) 0.3 % (0.0-2.0); HEMATOCRIT 25.2 % (36-46); HEMOGLOBIN 8.2 g/dL (12.0-16.0); LYMPHOCYTES # (AUTO) 0.6 K/uL (1.0-4.8); LYMPHOCYTES % (AUTO) 6.5 % (22.0-44.0); MEAN CORPUSCULAR HEMOGLOBIN 27.1 pg (26.0-34.0); MEAN CORPUSCULAR HGB CONC 32.4 G/dL (31.0-37.0); MEAN CORPUSCULAR VOLUME 84 fL (80-100); MONOCYTES # (AUTO) 0.6 K/uL (0.1-1.0); MONOCYTES % (AUTO) 5.9 % (2.0-9.0); NEUTROPHILS # (AUTO) 8.1 K/uL (1.8-7.7); PLATELET COUNT (AUTO) 411 K/uL (150-450); RED BLOOD CELL COUNT(AUTO) 3.01 MIL/uL (4.00-5.20); RED CELL DISTRIBUTION WIDTH 16.2 % (11.5-14.5)
[2020-09-04 05:37] LABS: NEUTROPHILS % (AUTO) 85.3 % (40.0-70.0)
[2020-09-04] MEDS: PROPOFOL 1000 MG/ISO-OSM 100 ML IV PRN ×4 (05:55→22:07)
[2020-09-04 05:56] LABS: ANION GAP 3 mmol/L (8-16); CARBON DIOXIDE 37 mmol/L (22-29); CHLORIDE 101 mmol/L (98-107); CREATININE 0.35 mg/dL (0.60-1.30); GLOMERULAR FILTR. RATE CALC > 60 mL/min (>60); GLUCOSE,RANDOM 110 mg/dL (70-110); POTASSIUM 3.7 mmol/L (3.5-5.1); SODIUM SERUM 141 mmol/L (136-145); UREA NITROGEN, BLOOD 23 mg/dL (7-18)
[2020-09-04 08:00] VITALS: BP 105/41
[2020-09-04] MEDS: LACTOBAC ACID/BULG/BIFID/THERM TABLET PO SCH ×2 (08:33→21:31)
[2020-09-04] MEDS: ENOXAPARIN SODIUM 40 MG/0.4 ML PF SYRINGE SQ SCH ×2 (08:33→21:00)
[2020-09-04] MEDS: MULTIVITAMINS WITH MINERALS, THERAPEUTIC 15 ML UDCUP GT SCH (08:34)
[2020-09-04] MEDS: PANTOPRAZOLE SODIUM 40 MG/VIAL IVP SCH ×2 (08:34→21:30)
[2020-09-04] MEDS: POLYETHYLENE GLYCOL 3350 17 GM PACKET PO SCH (08:34)
[2020-09-04] MEDS: DEXAMETHASONE SOD PHOS 4 MG/ML VIAL IVP SCH (08:34)
[2020-09-04] MEDS: METOPROLOL TARTRATE 25 MG TABLET PO SCH ×2 (09:00→21:30)
[2020-09-04 12:00] VITALS: BP 119/45
[2020-09-04 16:00] VITALS: BP 124/42
[2020-09-04 20:00] VITALS: BP 102/38
[2020-09-04] MEDS: AmLODIPine BESYLATE 10 MG TABLET PO SCH (21:31)
[2020-09-05] VITALS: BP 105/45
[2020-09-05] MEDS ORDERED: SODIUM CHLORIDE 0.9% 250 ML IV ONE ×2 (00:57→23:07)
[2020-09-05] MEDS ORDERED: SODIUM CHLORIDE 0.9% 500 ML IV ONE ×2 (00:57→23:07)
[2020-09-05 04:00] VITALS: BP 110/41
[2020-09-05] MEDS: CISATRACURIUM BESYLATE 100 MG in DEXTROSE 5%-WATER 240 ML IV PRN ×3 (05:29→17:12)
[2020-09-05] MEDS: FentaNYL CIT 1000MCG/D5%-WATER 100 ML IV PRN (05:30)
[2020-09-05 08:00] VITALS: BP 123/44
[2020-09-05] MEDS: DEXAMETHASONE SOD PHOS 4 MG/ML VIAL IVP SCH (08:32)
[2020-09-05] MEDS: PANTOPRAZOLE SODIUM 40 MG/VIAL IVP SCH ×2 (08:32→20:39)
[2020-09-05] MEDS: PROPOFOL 1000 MG/ISO-OSM 100 ML IV PRN ×2 (08:32→17:12)
[2020-09-05] MEDS: ENOXAPARIN SODIUM 40 MG/0.4 ML PF SYRINGE SQ SCH ×2 (08:32→20:40)
[2020-09-05] MEDS: POLYETHYLENE GLYCOL 3350 17 GM PACKET PO SCH (08:33)
[2020-09-05] MEDS: METOPROLOL TARTRATE 25 MG TABLET PO SCH ×2 (08:33→20:39)
[2020-09-05] MEDS: MULTIVITAMINS WITH MINERALS, THERAPEUTIC 15 ML UDCUP GT SCH (08:33)
[2020-09-05] MEDS: LACTOBAC ACID/BULG/BIFID/THERM TABLET PO SCH ×2 (08:33→20:39)
[2020-09-05] MEDS: NOREPINEPHRINE 4 MG/D5%-WATER 250 ML IV PRN (09:28)
[2020-09-05 12:00] VITALS: BP 118/39
[2020-09-05 16:00] VITALS: BP 94/36
[2020-09-05] MEDS ORDERED: FUROSEMIDE 40 MG/4 ML VIAL IVP ONE (17:15)
[2020-09-05] MEDS ORDERED: ALBUMIN HUMAN 25%-25GM/100ML 100 ML IV ONE (17:15)
[2020-09-05 18:08] LABS: CALCIUM, TOTAL 8.4 mg/dL (8.8-10.5); CREATININE 1.1 mg/dL (0.60-1.30); POTASSIUM 5.1 mmol/L (3.5-5.1)
[2020-09-05 18:11] LABS: MAGNESIUM 2.7 mg/dL (1.80-2.40); PHOSPHORUS 6.7 mg/dL (2.5-4.9)
[2020-09-05 20:00] VITALS: BP 109/37
[2020-09-05] MEDS: AmLODIPine BESYLATE 10 MG TABLET PO SCH (20:39)
[2020-09-06] VITALS: BP 108/37
[2020-09-06 04:00] VITALS: BP 109/36
[2020-09-06] MEDS: PROPOFOL 1000 MG/ISO-OSM 100 ML IV PRN ×3 (04:42→20:27)
[2020-09-06] MEDS: CISATRACURIUM BESYLATE 100 MG in DEXTROSE 5%-WATER 240 ML IV PRN ×3 (04:44→19:56)
[2020-09-06 05:50] LABS: BASOPHILS % (AUTO) 0.1 % (0.0-2.0); EOSINOPHILS % (AUTO) 0.1 % (1.0-6.0); HEMATOCRIT 24.7 % (36-46); HEMOGLOBIN 7.9 g/dL (12.0-16.0); LYMPHOCYTES # (AUTO) 0.5 K/uL (1.0-4.8); LYMPHOCYTES % (AUTO) 4.1 % (22.0-44.0); MEAN CORPUSCULAR HEMOGLOBIN 27.1 pg (26.0-34.0); MEAN CORPUSCULAR HGB CONC 32.1 G/dL (31.0-37.0); MEAN CORPUSCULAR VOLUME 84 fL (80-100); MONOCYTES # (AUTO) 0.7 K/uL (0.1-1.0); MONOCYTES % (AUTO) 5.7 % (2.0-9.0); NEUTROPHILS # (AUTO) 11.5 K/uL (1.8-7.7); PLATELET COUNT (AUTO) 410 K/uL (150-450); RED BLOOD CELL COUNT(AUTO) 2.93 MIL/uL (4.00-5.20); RED CELL DISTRIBUTION WIDTH 15.8 % (11.5-14.5)
[2020-09-06 06:45] LABS: ALBUMIN 2.1 g/dL (3.4-5.0); BILIRUBIN,TOTAL 0.6 mg/dL (0.1-1.0); C-REACTIVE PROTEIN QUANT 4.43 mg/dL (0.00-0.30); CALCIUM, TOTAL 8.2 mg/dL (8.8-10.5); CREATININE 1.32 mg/dL (0.60-1.30); POTASSIUM 4.7 mmol/L (3.5-5.1); TOTAL PROTEIN, SERUM 6.2 g/dL (6.4-8.2)
[2020-09-06 08:00] VITALS: BP 144/90
[2020-09-06] MEDS: LACTOBAC ACID/BULG/BIFID/THERM TABLET PO SCH ×2 (08:52→20:30)
[2020-09-06] MEDS: PANTOPRAZOLE SODIUM 40 MG/VIAL IVP SCH ×2 (08:52→20:29)
[2020-09-06] MEDS: POLYETHYLENE GLYCOL 3350 17 GM PACKET PO SCH (08:52)
[2020-09-06] MEDS: DEXAMETHASONE SOD PHOS 4 MG/ML VIAL IVP SCH (08:52)
[2020-09-06] MEDS: MULTIVITAMINS WITH MINERALS, THERAPEUTIC 15 ML UDCUP GT SCH (08:53)
[2020-09-06] MEDS: METOPROLOL TARTRATE 25 MG TABLET PO SCH ×2 (08:54→20:30)
[2020-09-06] MEDS: ENOXAPARIN SODIUM 40 MG/0.4 ML PF SYRINGE SQ SCH ×2 (08:54→20:29)
[2020-09-06] MEDS: NOREPINEPHRINE 4 MG/D5%-WATER 250 ML IV PRN ×3 (11:27→23:14)
[2020-09-06 12:00] VITALS: BP 120/33
[2020-09-06 12:49] LABS: ABG METHEMOGLOBIN 0.3 % (0.0-1.5); SOURCE, BLOOD GAS ARTERIAL; TEMPERATURE, FAHRENHEIT, BG 96.5 FAHREN (96.0-98.6)
[2020-09-06 12:52] LABS: ABG A-A DIFF O2 490.2 mmHg (10-20.0); ABG BASE EXCESS 2.1 mmol/L (-2.0-3.0); ABG CARBOXYHEMOGLOBIN 1.4 % (0.0-1.5); ABG HCO3 25.2 mmol/L (22.0-26.0); ABG OXYGEN CONTENT 12.3 mL/dL (15.0-23.0); ABG OXYGEN SATURATION 95.7 % (95.0-98.0); ABG OXYHEMOGLOBIN 94.1 % (94.0-100.0); ABG PCO2 82 mmHg (35-45); ABG PH 7.184 (7.35-7.450); ABG TOTAL HEMOGLOBIN 9.2 G/dL (12.0-18.0); PO2, ARTERIAL BG 70.4 mmHg (71.0-79.0); SITE, BLOOD GAS ARTERIAL LINE
[2020-09-06 12:53] LABS: O2 DEVICE,BLOOD GAS VENTILATOR (ROOM AIR); PEEP,BG 5 cm H2O; VENT MODE, BG Press. Control Vent (ROOM AIR); VT, ABG 380 ml
[2020-09-06] MEDS ORDERED: ALBUMIN HUMAN 25%-25GM/100ML 100 ML IV ONE (13:00)
[2020-09-06] MEDS ORDERED: FUROSEMIDE 40 MG/4 ML VIAL IVP ONE ×2 (13:30→20:00)
[2020-09-06] MEDS: FentaNYL CIT 1000MCG/D5%-WATER 100 ML IV PRN (14:12)
[2020-09-06 16:00] VITALS: BP 104/35
[2020-09-06 20:00] VITALS: BP 112/37
[2020-09-06] MEDS: AmLODIPine BESYLATE 10 MG TABLET PO SCH (20:30)
[2020-09-06] MEDS: PHENYLEPHRINE 200 MG/D5%-WATER 250 ML IV PRN (23:14)
[2020-09-07] VITALS: BP 95/35
[2020-09-07] MEDS: CISATRACURIUM BESYLATE 100 MG in DEXTROSE 5%-WATER 240 ML IV PRN ×3 (02:59→17:37)
[2020-09-07 04:00] VITALS: BP 125/41
[2020-09-07 05:42] LABS: BASOPHILS % (AUTO) 0.1 % (0.0-2.0); EOSINOPHILS % (AUTO) 0.1 % (1.0-6.0); HEMATOCRIT 24.9 % (36-46); HEMOGLOBIN 8.1 g/dL (12.0-16.0); LYMPHOCYTES # (AUTO) 0.5 K/uL (1.0-4.8); LYMPHOCYTES % (AUTO) 3.6 % (22.0-44.0); MEAN CORPUSCULAR HEMOGLOBIN 27.2 pg (26.0-34.0); MEAN CORPUSCULAR HGB CONC 32.5 G/dL (31.0-37.0); MEAN CORPUSCULAR VOLUME 84 fL (80-100); MONOCYTES # (AUTO) 0.8 K/uL (0.1-1.0); MONOCYTES % (AUTO) 5.7 % (2.0-9.0); NEUTROPHILS # (AUTO) 12.1 K/uL (1.8-7.7); PLATELET COUNT (AUTO) 394 K/uL (150-450); RED BLOOD CELL COUNT(AUTO) 2.97 MIL/uL (4.00-5.20); RED CELL DISTRIBUTION WIDTH 15.5 % (11.5-14.5)
[2020-09-07] MEDS: FentaNYL CIT 1000MCG/D5%-WATER 100 ML IV PRN ×2 (05:53→19:50)
[2020-09-07] MEDS: NOREPINEPHRINE 4 MG/D5%-WATER 250 ML IV PRN ×3 (05:54→14:50)
[2020-09-07 05:55] LABS: NEUTROPHILS % (AUTO) 90.5 % (40.0-70.0)
[2020-09-07 06:05] LABS: CALCIUM, TOTAL 8.3 mg/dL (8.8-10.5); CREATININE 2.04 mg/dL (0.60-1.30); PHOSPHORUS 7.8 mg/dL (2.5-4.9); POTASSIUM 4.9 mmol/L (3.5-5.1)
[2020-09-07] MEDS: DEXAMETHASONE SOD PHOS 4 MG/ML VIAL IVP SCH (07:58)
[2020-09-07] MEDS: ENOXAPARIN SODIUM 40 MG/0.4 ML PF SYRINGE SQ SCH ×2 (07:59→19:48)
[2020-09-07] MEDS: PANTOPRAZOLE SODIUM 40 MG/VIAL IVP SCH ×2 (07:59→19:48)
[2020-09-07] MEDS: POLYETHYLENE GLYCOL 3350 17 GM PACKET PO SCH (07:59)
[2020-09-07] MEDS: LACTOBAC ACID/BULG/BIFID/THERM TABLET PO SCH ×2 (07:59→19:48)
[2020-09-07] MEDS: MULTIVITAMINS WITH MINERALS, THERAPEUTIC 15 ML UDCUP GT SCH (07:59)
[2020-09-07 08:00] VITALS: BP 96/35
[2020-09-07] MEDS: PROPOFOL 1000 MG/ISO-OSM 100 ML IV PRN ×2 (08:00→17:36)
[2020-09-07] MEDS: PHENYLEPHRINE 200 MG/D5%-WATER 250 ML IV PRN ×2 (08:01→19:49)
[2020-09-07] MEDS: METOPROLOL TARTRATE 25 MG TABLET PO SCH ×2 (08:25→19:49)
[2020-09-07] MEDS: VASOPRESSIN 40 UNITS in DEXTROSE 5%-WATER 98 ML IV PRN ×2 (10:03→22:44)
[2020-09-07 10:57] LABS: ABG BASE EXCESS 0.8 mmol/L (-2.0-3.0); ABG CARBOXYHEMOGLOBIN 1.2 % (0.0-1.5); ABG HCO3 23.4 mmol/L (22.0-26.0); ABG METHEMOGLOBIN 0.3 % (0.0-1.5); ABG OXYGEN CONTENT 12.3 mL/dL (15.0-23.0); ABG OXYGEN SATURATION 92.7 % (95.0-98.0); ABG OXYHEMOGLOBIN 91.3 % (94.0-100.0); ABG TOTAL HEMOGLOBIN 9.5 G/dL (12.0-18.0); PO2, ARTERIAL BG 67.5 mmHg (71.0-79.0); SOURCE, BLOOD GAS ARTERIAL; TEMPERATURE, FAHRENHEIT, BG 98.6 FAHREN (96.0-98.6)
[2020-09-07 11:03] LABS: ABG PCO2 143 mmHg (35-45); ABG PH 6.976 (7.35-7.450); SITE, BLOOD GAS A-LINE
[2020-09-07 11:05] LABS: O2 DEVICE,BLOOD GAS VENTILATOR (ROOM AIR); PEEP,BG 5 cm H2O; VENT MODE, BG Press. Control Vent (ROOM AIR)
[2020-09-07 11:06] LABS: INSPIRATORY TIME, BG 0.9 SEC
[2020-09-07] MEDS ORDERED: DOPamine 400MG/D5W[STANDARD] 250 ML IV PRN (11:30)
[2020-09-07 12:00] VITALS: BP 99/36
[2020-09-07] MEDS ORDERED: PIPERACILLIN/TAZO 3.375 GM/D5W 50 ML IV ONE (12:00)
[2020-09-07] MEDS: CITRIC ACID/SODIUM CITRATE 30 ML SOLUTION UDCUP NG SCH ×2 (13:41→19:48)
[2020-09-07 13:55] LABS: ABG A-A DIFF O2 514.6 mmHg (10-20.0); ABG CARBOXYHEMOGLOBIN 1.1 % (0.0-1.5); ABG HCO3 21.5 mmol/L (22.0-26.0); ABG METHEMOGLOBIN 0.3 % (0.0-1.5); ABG OXYGEN CONTENT 12.5 mL/dL (15.0-23.0); ABG OXYHEMOGLOBIN 93.7 % (94.0-100.0); ABG TOTAL HEMOGLOBIN 9.4 G/dL (12.0-18.0); PO2, ARTERIAL BG 77.4 mmHg (71.0-79.0); SOURCE, BLOOD GAS ARTERIAL; TEMPERATURE, FAHRENHEIT, BG 97.1 FAHREN (96.0-98.6)
[2020-09-07 13:56] LABS: ABG PH 6.993 (7.35-7.450)
[2020-09-07 13:57] LABS: ABG PCO2 123 mmHg (35-45); O2 DEVICE,BLOOD GAS VENTILATOR (ROOM AIR); PEEP,BG 8 cm H2O; SITE, BLOOD GAS ARTERIAL LINE; SPONTANEOUS VT, BG 358 ml; VENT MODE, BG Press. Control Vent (ROOM AIR)
[2020-09-07] MEDS ORDERED: SODIUM CHLORIDE 0.9% 250 ML IV ONE (14:16)
[2020-09-07 14:54] LABS: APPEARANCE,URINE CLOUDY (CLEAR); GLUCOSE, URINE (UA) NEGATIVE (NEGATIVE); KETONES,URINE NEGATIVE (NEGATIVE); LEUKOCYTE ESTERASE ,URINE MODERATE (NEGATIVE); NITRATE,URINE NEGATIVE (NEGATIVE); PH,URINE 5.5 (5.0-8.0); PROTEIN,URINE SEE CONFIRM (NEGATIVE)
[2020-09-07 14:56] LABS: CREATININE,URINE RANDOM 33.8 mg/dL (30.0-125.0); SODIUM,URINE RANDOM 76 mmol/l (20-110)
[2020-09-07 15:36] LABS: BILIRUBIN,URINE PRELIM. POSITIVE (NEGATIVE); OCCULT BLOOD,URINE MODERATE (NEGATIVE)
[2020-09-07 15:38] LABS: BACTERIA,URINE Moderate /HPF (None Seen); SULFOSALICYLIC ACID,URINE 3+ (Negative); YEAST,URINE Moderate /HPF (None Seen)
[2020-09-07 16:00] VITALS: BP 95/107
[2020-09-07] MEDS: PIPERACILLIN SODIUM/TAZOBACTAM 2.25 GM in DEXTROSE 5%-WATER 50 ML IV SCH (17:35)
[2020-09-07] MEDS: NOREPINEPHRINE BITARTRATE 8 MG in DEXTROSE 5%-WATER 242 ML IV PRN ×2 (17:37→22:43)
[2020-09-07] MEDS: AmLODIPine BESYLATE 10 MG TABLET PO SCH (19:49)
[2020-09-07 20:00] VITALS: BP 117/35
[2020-09-08 00:20] VITALS: BP 96/32
[2020-09-08] MEDS: PIPERACILLIN SODIUM/TAZOBACTAM 2.25 GM in DEXTROSE 5%-WATER 50 ML IV SCH ×5 (00:27→23:08)
[2020-09-08] MEDS: CISATRACURIUM BESYLATE 100 MG in DEXTROSE 5%-WATER 240 ML IV PRN ×3 (00:40→17:44)
[2020-09-08] MEDS: PROPOFOL 1000 MG/ISO-OSM 100 ML IV PRN ×3 (01:44→19:32)
[2020-09-08 04:00] VITALS: BP 120/39
[2020-09-08] MEDS: NOREPINEPHRINE BITARTRATE 8 MG in DEXTROSE 5%-WATER 242 ML IV PRN ×3 (05:21→23:09)
[2020-09-08 08:00] VITALS: BP 132/39
[2020-09-08] MEDS: CITRIC ACID/SODIUM CITRATE 30 ML SOLUTION UDCUP NG SCH ×2 (08:08→20:55)
[2020-09-08] MEDS: LACTOBAC ACID/BULG/BIFID/THERM TABLET PO SCH ×2 (08:08→20:55)
[2020-09-08] MEDS: POLYETHYLENE GLYCOL 3350 17 GM PACKET PO SCH (08:09)
[2020-09-08] MEDS: PANTOPRAZOLE SODIUM 40 MG/VIAL IVP SCH ×2 (08:09→20:55)
[2020-09-08] MEDS: METOPROLOL TARTRATE 25 MG TABLET PO SCH ×2 (08:09→20:56)
[2020-09-08] MEDS: ENOXAPARIN SODIUM 40 MG/0.4 ML PF SYRINGE SQ SCH ×2 (08:09→20:55)
[2020-09-08] MEDS: MULTIVITAMINS WITH MINERALS, THERAPEUTIC 15 ML UDCUP GT SCH (08:10)
[2020-09-08] MEDS: DEXAMETHASONE SOD PHOS 4 MG/ML VIAL IVP SCH (08:10)
[2020-09-08] MEDS: PHENYLEPHRINE 200 MG/D5%-WATER 250 ML IV PRN ×2 (08:11→19:32)
[2020-09-08 12:00] VITALS: BP 145/47
[2020-09-08] MEDS: AMINO ACIDS/PROTEIN HYDROLYS 30 ML TUBE PO SCH (12:31)
[2020-09-08] MEDS ORDERED: SODIUM CHLORIDE 0.9% 250 ML IV ONE (14:18)
[2020-09-08] MEDS ORDERED: CASPOFUNGIN ACETATE 70 MG in SODIUM CHLORIDE 0.9% 250 ML IV ONE (15:00)
[2020-09-08] MEDS: CALCIUM ACETATE 667 MG CAPSULE NG SCH ×2 (15:21→20:55)
[2020-09-08 16:00] VITALS: BP 135/40
[2020-09-08] MEDS: FentaNYL CIT 1000MCG/D5%-WATER 100 ML IV PRN (17:45)
[2020-09-08 20:00] VITALS: BP 131/42
[2020-09-08] MEDS: AmLODIPine BESYLATE 10 MG TABLET PO SCH (20:56)
[2020-09-09] VITALS: BP 111/40
[2020-09-09] MEDS: VASOPRESSIN 40 UNITS in DEXTROSE 5%-WATER 98 ML IV PRN ×2 (01:41→21:44)
[2020-09-09 04:00] VITALS: BP 128/41
[2020-09-09] MEDS: PIPERACILLIN SODIUM/TAZOBACTAM 2.25 GM in DEXTROSE 5%-WATER 50 ML IV SCH ×3 (05:30→18:31)
[2020-09-09] MEDS: PROPOFOL 1000 MG/ISO-OSM 100 ML IV PRN ×2 (06:07→21:11)
[2020-09-09 08:00] VITALS: BP 125/39
[2020-09-09] MEDS: POLYETHYLENE GLYCOL 3350 17 GM PACKET PO SCH (08:37)
[2020-09-09] MEDS: CITRIC ACID/SODIUM CITRATE 30 ML SOLUTION UDCUP NG SCH ×2 (09:00→20:22)
[2020-09-09] MEDS: CALCIUM ACETATE 667 MG CAPSULE NG SCH ×3 (09:00→20:21)
[2020-09-09] MEDS: METOPROLOL TARTRATE 25 MG TABLET PO SCH (09:00)
[2020-09-09] MEDS ORDERED: FUROSEMIDE 40 MG/4 ML VIAL IVP ONE (09:00)
[2020-09-09] MEDS: LACTOBAC ACID/BULG/BIFID/THERM TABLET PO SCH ×2 (09:00→20:21)
[2020-09-09] MEDS: MULTIVITAMINS WITH MINERALS, THERAPEUTIC 15 ML UDCUP GT SCH (09:00)
[2020-09-09] MEDS: PANTOPRAZOLE SODIUM 40 MG/VIAL IVP SCH ×2 (09:01→20:21)
[2020-09-09] MEDS: ENOXAPARIN SODIUM 40 MG/0.4 ML PF SYRINGE SQ SCH ×2 (09:04→20:21)
[2020-09-09] MEDS: DEXAMETHASONE SOD PHOS 4 MG/ML VIAL IVP SCH (09:04)
[2020-09-09] MEDS: NOREPINEPHRINE BITARTRATE 8 MG in DEXTROSE 5%-WATER 242 ML IV PRN ×2 (09:09→20:10)
[2020-09-09] MEDS: CISATRACURIUM BESYLATE 100 MG in DEXTROSE 5%-WATER 240 ML IV PRN ×5 (09:09→23:53)
[2020-09-09] MEDS: PHENYLEPHRINE 200 MG/D5%-WATER 250 ML IV PRN ×2 (09:10→23:46)
[2020-09-09 12:00] VITALS: BP 138/41
[2020-09-09] MEDS: AMINO ACIDS/PROTEIN HYDROLYS 30 ML TUBE PO SCH (12:01)
[2020-09-09] MEDS ORDERED: CASPOFUNGIN ACETATE 50 MG in SODIUM CHLORIDE 0.9% 250 ML IV SCH (15:00)
[2020-09-09] MEDS: FentaNYL CIT 1000MCG/D5%-WATER 100 ML IV PRN (15:47)
[2020-09-09 16:00] VITALS: BP 137/42
[2020-09-09 20:00] VITALS: BP 135/43
[2020-09-10] VITALS: BP 122/39
[2020-09-10] MEDS: PIPERACILLIN SODIUM/TAZOBACTAM 2.25 GM in DEXTROSE 5%-WATER 50 ML IV SCH ×3 (00:10→13:01)
[2020-09-10 04:32] VITALS: BP 141/41
[2020-09-10] MEDS: FentaNYL CIT 1000MCG/D5%-WATER 100 ML IV PRN (05:53)
[2020-09-10] MEDS: NOREPINEPHRINE BITARTRATE 8 MG in DEXTROSE 5%-WATER 242 ML IV PRN ×2 (06:09→13:02)
[2020-09-10 08:00] VITALS: BP 97/30
[2020-09-10 08:01] LABS: EOSINOPHILS % (AUTO) 0.1 % (1.0-6.0); MONOCYTES # (AUTO) 0.7 K/uL (0.1-1.0); RED CELL DISTRIBUTION WIDTH 14.9 % (11.5-14.5)
[2020-09-10 08:11] LABS: CALCIUM, TOTAL 7.7 mg/dL (8.8-10.5); CREATININE 2.61 mg/dL (0.60-1.30); POTASSIUM 5.1 mmol/L (3.5-5.1)
[2020-09-10] MEDS ORDERED: SODIUM CHLORIDE 3% 500 ML IV SCH (08:30)
[2020-09-10 08:49] LABS: BASOPHILS % (AUTO) 0.1 % (0.0-2.0); LYMPHOCYTES # (AUTO) 0.4 K/uL (1.0-4.8); LYMPHOCYTES % (AUTO) 2.1 % (22.0-44.0); MEAN CORPUSCULAR HEMOGLOBIN 26.7 pg (26.0-34.0); MEAN CORPUSCULAR HGB CONC 33.5 G/dL (31.0-37.0); MEAN CORPUSCULAR VOLUME 80 fL (80-100); MONOCYTES % (AUTO) 3.7 % (2.0-9.0); NEUTROPHILS # (AUTO) 18.1 K/uL (1.8-7.7); PLATELET COUNT (AUTO) 340 K/uL (150-450); RED BLOOD CELL COUNT(AUTO) 2.44 MIL/uL (4.00-5.20)
[2020-09-10 08:54] LABS: HEMATOCRIT 19.4 % (36-46); HEMOGLOBIN 6.5 g/dL (12.0-16.0)
[2020-09-10] MEDS: CISATRACURIUM BESYLATE 100 MG in DEXTROSE 5%-WATER 240 ML IV PRN (09:00)
[2020-09-10] MEDS: DEXAMETHASONE SOD PHOS 4 MG/ML VIAL IVP SCH (09:10)
[2020-09-10] MEDS: PANTOPRAZOLE SODIUM 40 MG/VIAL IVP SCH (09:11)
[2020-09-10] MEDS: MULTIVITAMINS WITH MINERALS, THERAPEUTIC 15 ML UDCUP GT SCH (09:11)
[2020-09-10] MEDS: CALCIUM ACETATE 667 MG CAPSULE NG SCH (09:12)
[2020-09-10] MEDS: CITRIC ACID/SODIUM CITRATE 30 ML SOLUTION UDCUP NG SCH (09:12)
[2020-09-10] MEDS: LACTOBAC ACID/BULG/BIFID/THERM TABLET PO SCH (09:13)
[2020-09-10] MEDS: POLYETHYLENE GLYCOL 3350 17 GM PACKET PO SCH ×2 (09:13→09:23)
[2020-09-10] MEDS: ENOXAPARIN SODIUM 40 MG/0.4 ML PF SYRINGE SQ SCH (09:13)
[2020-09-10] MEDS ORDERED: SODIUM CHLORIDE 0.9% 500 ML IV ONE (09:25)
[2020-09-10 09:53] LABS: BASOPHILS % (AUTO) 0.9 % (0.0-2.0); EOSINOPHILS % (AUTO) 0.1 % (1.0-6.0); LYMPHOCYTES # (AUTO) 0.5 K/uL (1.0-4.8); LYMPHOCYTES % (AUTO) 2.6 % (22.0-44.0); MEAN CORPUSCULAR HEMOGLOBIN 26.9 pg (26.0-34.0); MEAN CORPUSCULAR HGB CONC 33.7 G/dL (31.0-37.0); MEAN CORPUSCULAR VOLUME 80 fL (80-100); MONOCYTES # (AUTO) 0.7 K/uL (0.1-1.0); MONOCYTES % (AUTO) 3.4 % (2.0-9.0); NEUTROPHILS # (AUTO) 18.5 K/uL (1.8-7.7); PLATELET COUNT (AUTO) 332 K/uL (150-450); RED BLOOD CELL COUNT(AUTO) 2.41 MIL/uL (4.00-5.20); RED CELL DISTRIBUTION WIDTH 14.9 % (11.5-14.5)
[2020-09-10 10:09] LABS: CALCIUM, TOTAL 7.6 mg/dL (8.8-10.5); CREATININE 2.81 mg/dL (0.60-1.30); POTASSIUM 5.2 mmol/L (3.5-5.1)
[2020-09-10 10:34] LABS: HEMOGLOBIN 6.5 g/dL (12.0-16.0)
[2020-09-10 10:35] LABS: HEMATOCRIT 19.3 % (36-46)
[2020-09-10] MEDS ORDERED: SODIUM CHLORIDE 0.9% 250 ML IV ONE (11:04)
[2020-09-10] MEDS: AMINO ACIDS/PROTEIN HYDROLYS 30 ML TUBE PO SCH (12:07)
[2020-09-10 13:02] VITALS: BP 102/30
[2020-09-10] MEDS ORDERED: MORPHINE SULFATE 2 MG/ML SYRINGE IVP PRN (14:30)
== END 2020-09-10 17:30 | DRG 720 ==
LOC: EMS 09:00 → EDBD 14:05 → 5N 14:05 → ICUN 08-15 19:00 → ICU 08-15 23:32 → 5N 08-18 14:55 → ICU 08-19 10:30
PROVIDERS: ADMIT Internal Medicine; ATTEND Internal Medicine
PROC: XW033E5 Introduction of Remdesivir Anti-infective into Peripheral Vein, Percutaneous Approach, New Technology Group 5 (ICD-10-PCS; 2020-08-09)
PROC: XW13325 Transfusion of Convalescent Plasma (Nonautologous) into Peripheral Vein, Percutaneous Approach, New Technology Group 5 (ICD-10-PCS; 2020-08-10)
PROC: 5A09457 Assistance with Respiratory Ventilation, 24-96 Consecutive Hours, Continuous Positive Airway Pressure (ICD-10-PCS; 2020-08-15)
PROC: 5A1955Z Respiratory Ventilation, Greater than 96 Consecutive Hours (ICD-10-PCS; principal; 2020-08-19)
PROC: 0BH17EZ Insertion of Endotracheal Airway into Trachea, Via Natural or Artificial Opening (ICD-10-PCS; 2020-08-19)
PROC: 02HV33Z Insertion of Infusion Device into Superior Vena Cava, Percutaneous Approach (ICD-10-PCS; 2020-09-05)
DX: A41.89 Other specified sepsis (principal); U07.1 COVID-19; J96.01 Acute respiratory failure with hypoxia; E87.6 Hypokalemia; J12.82 Pneumonia due to coronavirus disease 2019; D72.810 Lymphocytopenia; K59.00 Constipation, unspecified; D68.59 Other primary thrombophilia; E87.1 Hypo-osmolality and hyponatremia; L89.150 Pressure ulcer of sacral region, unstageable; Z66 Do not resuscitate; Z51.5 Encounter for palliative care; N17.9 Acute kidney failure, unspecified; R65.21 Severe sepsis with septic shock; D64.9 Anemia, unspecified; E87.4 Mixed disorder of acid-base balance; G93.40 Encephalopathy, unspecified; K81.0 Acute cholecystitis; N28.1 Cyst of kidney, acquired; R13.10 Dysphagia, unspecified; N18.9 Chronic kidney disease, unspecified; I13.10 Hypertensive heart and chronic kidney disease without heart failure, with stage 1 through stage 4 chronic kidney disease, or unspecified chronic kidney disease; J98.2 Interstitial emphysema; I45.2 Bifascicular block; I31.9 Disease of pericardium, unspecified; R53.81 Other malaise; R82.81 Pyuria; Z79.01 Long term (current) use of anticoagulants; Z99.11 Dependence on respirator [ventilator] status; Z87.442 Personal history of urinary calculi; Z90.710 Acquired absence of both cervix and uterus; Z78.9 Other specified health status
CPT/HCPCS: 36569; 36600; 71045; 74176; 74177; 76700; 80048; 80053; 81001; 81002; 82550; 82570; 82728; 82805; 83605; 83615; 83690; 83735; 83880; 83930; 84100; 84132; 84145; 84300; 84484; 85025; 85379; 85384; 85610; 85730; 86140; 86850; 86900; 86901; 86923; 86927; 87040; 87070; 87081; 87086; 87205; 87804; 93005; 94002; 94003; 94660; 96365; 99291; C9113; G0238; G0378; J0295; J0360; J0456; J0637; J0696; J1100; J1265; J1644; J1650; J1940; J1956; J2060; J2250; J2270; J2370; J2405; J2543; J2704; J2765; J3010; J3480; J3490; J3535; J7030; J7040; J7050; J7060; P9046; Q9967; 36415-L1; 36415-TC; U0003